=== PATIENT | female | born 1945 | race Caucasian/White ===

== ENCOUNTER → 2016-06-30 | Outpatient (CLI) | payer BC ==
--- NOTE | 2016-06-30 07:55 | MAMMOGRAPHY REPORT ---
BILATERAL DIGITAL SCREENING MAMMOGRAM WITH CAD: 06/30/2016 CLINICAL HISTORY: Routine screening. Patient has no complaints. TECHNIQUE: Current study was also evaluated with a Computer Aided Detection (CAD) system. Bilatera l CC and MLO views were obtained. COMPARISON: Comparison is made to exams dated: 06/23/2014 mammogram, 06/19/2013 mammogram, 05/16/2012 mammogram, 05/12/2011 mammogram, 05/11/2010 mammogram, and 05/07/2009 mammogram - [facility]. BREAST COMPOSITION: There are scattered areas of fibroglandular density in both breasts. FINDINGS: No suspicious masses, calcifications, or areas of architectural distortion are noted in e ither breast. There has been no significant interval change compared to prior exams. Scattered bilat eral benign-appearing calcifications are not significantly changed. IMPRESSION: ACR BI-RADS CATEGORY 2: BENIGN There is no mammographic evidence of malignancy. A 1 year screening mammogram is recommended. The p atient will receive written notification of the results. Approximately 10% of breast cancers are not detected with mammography. A negative mammographic repor t should not delay biopsy if a clinically suggestive mass is present. Talia Velásquez M.D. /:06/30/2016 07:47:16 Administrative Aide: Marjan Sam, [facility] letter sent: Normal 1/2 BI-RADS Code: ACR BI-RADS Category 2: Benign
== END | disposition home or self-care (01) ==
LOC: C.MAMM 07:17
PROVIDERS: ATTEND Family Medicine
DX: Z12.31 Encounter for screening mammogram for malignant neoplasm of breast (principal)

== ENCOUNTER → 2017-07-04 | Outpatient (CLI) | payer BC ==
--- NOTE | 2017-07-04 12:51 | MAMMOGRAPHY REPORT ---
BILATERAL DIGITAL SCREENING MAMMOGRAM TOMOSYNTHESIS WITH CAD: 07/04/2017 CLINICAL HISTORY: Routine screening. Patient has no complaints. TECHNIQUE: Breast tomosynthesis in addition to standard 2D mammography was performed. Current study was also evaluated with a Computer Aided Detection (CAD) system. COMPARISON: Comparison is made to exams dated: 06/30/2016 mammogram, 06/25/2015 mammogram, 06/23/2014 ma mmogram, 06/19/2013 mammogram, 05/16/2012 mammogram, and 05/12/2011 mammogram - [facility]. BREAST COMPOSITION: There are scattered areas of fibroglandular density in both breasts. FINDINGS: There are stable grouped punctate micro calcifications in the right breast and a few other scattered punctate micro calcifications bilaterally. A benign coarse calcification in the upper oute r right breast. Stable benign circumscribed mass in the upper outer quadrant of the left breast. No new suspicious mass, architectural distortion or cluster of microcalcifications is seen. IMPRESSION: ACR BI-RADS CATEGORY 1: NEGATIVE There is no mammographic evidence of malignancy. A 1 year screening mammogram is recommended. The pa tient will receive written notification of the results. Approximately 10% of breast cancers are not detected with mammography. A negative mammographic report should not delay biopsy if a clinically suggestive mass is present. Jenni Piper M.D. ay/:07/04/2017 08:29:04 Ultrasound Coordinator: Marjan Sam, [facility] letter sent: Normal 1/2 BI-RADS Code: ACR BI-RADS Category 1: Negative
== END | disposition home or self-care (01) ==
LOC: C.MAMM 07:14
PROVIDERS: ATTEND Family Medicine
DX: Z12.31 Encounter for screening mammogram for malignant neoplasm of breast (principal)

== ENCOUNTER 2018-05-28 19:22 | Inpatient (IN) ==
[2018-05-28] MEDS ORDERED: ONDANSETRON INJ 2 MG/ML 2 ML VIAL IV STA (19:41)
[2018-05-28] MEDS ORDERED: MoRPHine SULFATE 4 MG/ML 1 ML CARP\\VIAL IV STA (19:41)
--- NOTE | 2018-05-28 20:06 | Emergency Department Note ---
Entered by Jackie Matamoros acting as a scribe for Silvio Brizuela DO History of Present Illness General Chief complaint: Shortness of Breath/Dyspnea Stated complaint: CAN'T BREATH,PAIN IN BACK Time Seen by Provider: 05/28/18 19:31 Source: patient and family Mode of arrival: ambulatory Limitations: no limitations History of Present Illness Provider complaint: SOB Onset (ago): day(s) 4 Location: chest Severity: moderate Pain Consistency: + constant Maximum Pain Intensity: 6 Exacerbated By: + movement Associated symptoms: + other (lower back pain, lower abd pain, fever); no nausea/vomiting Patient is a 72 year old female presenting to the ED with Sob beginning x4 days ago. Patient states that she was recently diagnosed with Strep Throat upon onset, and has been having worsening SOB since. SOB is moderate in severity and worsens with exertion, walking and laying down. She notes that she did have fever of 102 upon onset. She includes she is having associated pain in the lower abd and lower back, which is mild in severity and constant since onset. Patient shares that she did start Penicillin today and has had x2 doses. Patient denies any edema in the legs, nausea, vomiting, chills, numbness, or any other complaints or concerns at this time. She notes hx of high cholesterol, melanoma and thyroid problems. She denies hx of DVT. Home Medications Home Medications Medication Instructions Recorded Confirmed Type aspirin [Aspir-81] 1 tab PO DAILY 05/28/18 05/28/18 History atorvastatin 20 mg PO PM 05/28/18 05/28/18 History calcium carbonate-vitamin D3 1 cap PO DAILY 05/28/18 05/28/18 History [Calcium 600 + D(3)] cholecalciferol (vitamin D3) 1,000 unit PO DAILY 05/28/18 05/28/18 History [Vitamin D3] citalopram [Celexa] 20 mg PO DAILY 05/28/18 05/28/18 History [id number]-ast 1 cap PO DAILY 05/28/18 05/28/18 History [krill oil] levothyroxine [Synthroid] 125 mcg PO DAILY 05/28/18 05/28/18 History penicillin V potassium 500 mg PO TID 05/28/18 05/28/18 History trazodone 1 tab PO HS 05/28/18 05/28/18 History Allergies Allergy/AdvReac Type Severity Reaction Status Date / Time No Known Allergies Allergy Verified 05/28/18 20:47 Past Med/Surg History Medical History History of hysterectomy (Chronic) Graves disease (Chronic) Depression (Chronic) Prediabetes (Chronic) High cholesterol (Chronic) Melanoma (Resolved) Family history non-contributory Surgical History History of cholecystectomy (Chronic) History of appendectomy (Chronic) Family History Other CAD (coronary artery disease) Social History Preferred Language: Frisian Communication Ability: Effective Event Sales Manager Required: No Beliefs That Will Affect Care: Episcopal Current Living Situation: Spouse Other Information That Helps Us Care for You: No Feels Safe at Home: Yes Safety Concerns: Feels Safe At This Time Smoking Status: Never smoker Hx Alcohol Use: No Hx Substance Use: No Review of Systems See HPI for pertinent positives & negatives. and A total of 10 systems reviewed and were otherwise negative Physical Exam Vital Signs Vital Signs - 24 hr 05/28/18 19:25 05/28/18 19:56 05/28/18 20:10 Temperature 36.7 C Temperature Source Oral Sepsis Recent Fever Within 48 Hours No Sepsis New/Unexplained Change in Mental Status No Sepsis Action Taken by Nursing No Action Required Pulse Rate 147 H 128 H Pulse Rate [Bilateral Apical] 128 H Pulse Rate [Left Finger] Pulse Rhythm Regular Pulse Rhythm [Left Finger] Pulse Strength [Left Finger] Respiratory Rate 24 22 Respiratory Effort / Characteristics Non-Labored Labored Non-Labored Spontaneous Respiratory Depth Normal Deep Respiratory Pattern Regular Blood Pressure 150/102 H Blood Pressure [Left Arm] Blood Pressure [Left Radial Artery] 141/90 H Blood Pressure [Right Arm] Blood Pressure Mean 118 Blood Pressure Mean [Left Arm] Blood Pressure Mean [Left Radial Artery] 107 Blood Pressure Mean [Right Arm] Blood Pressure Position [Left Arm] Blood Pressure Position [Right Arm] Pulse Oximetry 91 92 93 Oxygen Delivery Method Room Air Room Air Nasal Cannula Oxygen Flow Rate 2 05/28/18 20:11 05/28/18 21:22 05/28/18 22:40 Temperature Temperature Source Sepsis Recent Fever Within 48 Hours Sepsis New/Unexplained Change in Mental Status Sepsis Action Taken by Nursing Pulse Rate 95 H Pulse Rate [Bilateral Apical] 137 H 99 H Pulse Rate [Left Finger] Pulse Rhythm Pulse Rhythm [Left Finger] Pulse Strength [Left Finger] Respiratory Rate 22 18 20 Respiratory Effort / Characteristics Respiratory Depth Respiratory Pattern Blood Pressure 145/84 H Blood Pressure [Left Arm] Blood Pressure [Left Radial Artery] 141/98 H 143/81 H Blood Pressure [Right Arm] Blood Pressure Mean Blood Pressure Mean [Left Arm] Blood Pressure Mean [Left Radial Artery] 112 101 Blood Pressure Mean [Right Arm] Blood Pressure Position [Left Arm] Blood Pressure Position [Right Arm] Pulse Oximetry 93 94 95 Oxygen Delivery Method Nasal Cannula Nasal Cannula Nasal Cannula Oxygen Flow Rate 2 2 2 05/28/18 23:42 05/29/18 01:19 05/29/18 02:56 Temperature 36.8 C 36.3 C L Temperature Source Oral Oral Sepsis Recent Fever Within 48 Hours Sepsis New/Unexplained Change in Mental Status Sepsis Action Taken by Nursing Pulse Rate Pulse Rate [Bilateral Apical] 142 H 124 H 78 Pulse Rate [Left Finger] Pulse Rhythm Pulse Rhythm [Left Finger] Pulse Strength [Left Finger] Respiratory Rate 20 18 Respiratory Effort / Characteristics Non-Labored Spontaneous SOB on Exertion Respiratory Depth Normal Respiratory Pattern Regular Blood Pressure Blood Pressure [Left Arm] 137/82 121/76 Blood Pressure [Left Radial Artery] Blood Pressure [Right Arm] 157/93 H Blood Pressure Mean Blood Pressure Mean [Left Arm] 100 91 Blood Pressure Mean [Left Radial Artery] Blood Pressure Mean [Right Arm] 114 Blood Pressure Position [Left Arm] Lying Blood Pressure Position [Right Arm] Sitting Pulse Oximetry 92 93 Oxygen Delivery Method Nasal Cannula Oxygen Flow Rate 2 2 05/29/18 07:34 05/29/18 09:33 05/29/18 11:09 Temperature 36.5 C 37.2 C Temperature Source Oral Oral Sepsis Recent Fever Within 48 Hours Sepsis New/Unexplained Change in Mental Status Sepsis Action Taken by Nursing Pulse Rate Pulse Rate [Bilateral Apical] 70 Pulse Rate [Left Finger] 70 65 Pulse Rhythm Pulse Rhythm [Left Finger] Regular Pulse Strength [Left Finger] Normal Respiratory Rate 18 18 Respiratory Effort / Characteristics Respiratory Depth Respiratory Pattern Blood Pressure Blood Pressure [Left Arm] 122/81 102/69 Blood Pressure [Left Radial Artery] Blood Pressure [Right Arm] 143/85 H Blood Pressure Mean Blood Pressure Mean [Left Arm] 94 80 Blood Pressure Mean [Left Radial Artery] Blood Pressure Mean [Right Arm] 104 Blood Pressure Position [Left Arm] Lying Blood Pressure Position [Right Arm] Pulse Oximetry 94 91 Oxygen Delivery Method Oxygen Flow Rate 2 2 05/29/18 11:40 05/29/18 15:31 05/29/18 16:00 Temperature 36.7 C Temperature Source Oral Sepsis Recent Fever Within 48 Hours Sepsis New/Unexplained Change in Mental Status Sepsis Action Taken by Nursing Pulse Rate Pulse Rate [Bilateral Apical] Pulse Rate [Left Finger] 63 Pulse Rhythm Pulse Rhythm [Left Finger] Regular Pulse Strength [Left Finger] Normal Respiratory Rate 18 Respiratory Effort / Characteristics SOB on Exertion Non-Labored Non-Labored Spontaneous Respiratory Depth Normal Normal Normal Respiratory Pattern Regular Regular Blood Pressure Blood Pressure [Left Arm] Blood Pressure [Left Radial Artery] Blood Pressure [Right Arm] 138/81 Blood Pressure Mean Blood Pressure Mean [Left Arm] Blood Pressure Mean [Left Radial Artery] Blood Pressure Mean [Right Arm] 100 Blood Pressure Position [Left Arm] Blood Pressure Position [Right Arm] Lying Pulse Oximetry 90 Oxygen Delivery Method Nasal Cannula Room Air Nasal Cannula Oxygen Flow Rate 2 2 GENERAL: Patient is awake alert in no acute distress patient is resting comfortably and showing no signs of anxiety EYES: The conjunctivae are clear. The pupils are round and reactive. EARS, NOSE, MOUTH AND THROAT: The nose is without any evidence of any deformity. Mucous membranes are moist tongue is midline NECK: The neck is nontender and supple. RESPIRATORY: Shallow respirations were noted. There are diminished breath sounds noted throughout. Scattered rales were noted in all lung mcgarry. There was significant conversational dyspnea appreciated. CARDIOVASCULAR: Tachycardic rate with irregular rhythm was noted. There was no definite murmur noted to auscultation. GASTROINTESTINAL: The abdomen is soft. Bowel sounds are present in all quadrants. Abdomen is nontender MUSCULOSKELETAL/EXTREMITIES: There is no evidence of gross deformity full range of motion is noted in the hips and shoulders SKIN: There is no obvious evidence of any rash. There are no petechiae, pallor or cyanosis noted. NEUROLOGIC: Patient is awake alert and oriented x3. Course 1936: Past medical records reviewed. The patient was evaluated in room A10, and a complete history and physical examination were performed. 2055: Updated patient on results and plan for admission 2104: Discussed patient case with Yanelis Martinez PA-C, who accepts patient for admission. Administered Medications Colchicine (Colcrys) 0.6 mg PO BID [facility] Stop: 06/28/18 08:59 Last Admin: 05/29/18 09:31 Dose: 0.6 mg Documented by: [id number] Doxycycline Hyclate (Vibramycin) 100 mg PO BID [facility] Stop: 06/05/18 08:59 Last Admin: 05/29/18 09:31 Dose: 100 mg Documented by: [id number] Ceftriaxone Sodium 1,000 mg/ (Dextrose) 50 mls @ 100 mls/hr IV DAILY@0100 [facility] Stop: 06/05/18 00:59 Last Infusion: 05/29/18 01:03 Dose: 0 mls/hr Documented by: [id number] Admin: 05/29/18 00:31 Dose: 100 mls/hr Documented by: [id number] Methylprednisolone 20 mg/ (Syringe) 0.32 mls @ 1.5 mls/min IV Q8H [facility] Stop: 06/28/18 00:00 Last Admin: 05/29/18 09:26 Dose: 1.5 mls/min Documented by: [id number] Admin: 05/29/18 00:31 Dose: 1.5 mls/min Documented by: [id number] Heparin Sodium/Dextrose (Heparin Sodium/Dextrose) 25,000 units in 500 mls @ 20 mls/hr IV .Q24H [facility]; Protocol Stop: 06/28/18 01:14 Last Titration: 05/29/18 15:09 Dose: 1,000 units/hr, 20 mls/hr Documented by: [id number] Cosigned by: [id number] Titration: 05/29/18 08:50 Dose: 1,000 units/hr, 20 mls/hr Documented by: [id number] Cosigned by: [id number] Titration: 05/29/18 07:23 Dose: 850 units/hr, 17 mls/hr Documented by: [id number] Cosigned by: [id number] Admin: 05/29/18 01:22 Dose: 850 units/hr, 17 mls/hr Documented by: [id number] Cosigned by: [id number] Insulin Aspart (Novolog Flexpen) 0 units SC ACHS [facility] Stop: 06/28/18 07:29 Last Admin: 05/29/18 12:02 Dose: 4 units Documented by: [id number] Cosigned by: [id number] Admin: 05/29/18 09:30 Dose: 7 units Documented by: [id number] Cosigned by: [id number] Insulin Glargine (Lantus Solostar Pen) 0 - 15 units SC Q12 [facility]; Protocol Stop: 06/28/18 00:00 Last Admin: 05/29/18 09:29 Dose: 15 units Documented by: [id number] Cosigned by: [id number] Admin: 05/29/18 00:32 Dose: 7 units Documented by: [id number] Cosigned by: [id number] Ioversol (Optiray 320 125ml) 125 ml IV ONCE PRN PRN Reason: Interaction Checking Stop: 06/01/18 23:30 Last Admin: 05/28/18 23:31 Dose: 91 ml Documented by: [id number] Metoprolol Tartrate (Lopressor) 25 mg PO BID [facility] Stop: 06/28/18 00:00 Last Admin: 05/29/18 09:27 Dose: 25 mg Documented by: [id number] Admin: 05/29/18 00:32 Dose: 25 mg Documented by: [id number] Discontinued Medications Diltiazem HCl (Cardizem) 10 mg IV NOW STA Stop: 05/28/18 21:06 Last Admin: 05/28/18 21:13 Dose: 10 mg Documented by: [id number] Cosigned by: [id number] Piperacillin Sod/Tazobactam Sod (Zosyn) 4.5 gm in 120 mls @ 240 mls/hr IV NOW ONE Stop: 05/28/18 20:59 Last Infusion: 05/29/18 00:11 Dose: 0 mls/hr Documented by: [id number] Admin: 05/28/18 20:40 Dose: 240 mls/hr Documented by: [id number] Sodium Chloride (Nss 1000ml) 500 mls @ 999 mls/hr IV .Q31M ONE Stop: 05/28/18 21:00 Last Infusion: 05/29/18 00:11 Dose: 0 mls/hr Documented by: [id number] Admin: 05/28/18 20:40 Dose: 999 mls/hr Documented by: [id number] Sodium Chloride (Nss 1000ml) 1,000 mls @ 999 mls/hr IV .Q1H1M ONE Stop: 05/28/18 22:05 Last Infusion: 05/29/18 00:11 Dose: 0 mls/hr Documented by: [id number] Admin: 05/28/18 21:15 Dose: 999 mls/hr Documented by: [id number] Sodium Chloride (Nss 1000ml) 1,000 mls @ 80 mls/hr IV .[id number] [facility] Stop: 05/29/18 10:59 Last Infusion: 05/29/18 13:01 Dose: 0 mls/hr Documented by: [id number] Admin: 05/29/18 00:10 Dose: 80 mls/hr Documented by: [id number] Magnesium Sulfate/Dextrose (Magnesium Sulfate / D5w) 1 gm in 100 mls @ 100 mls/hr IV NOW ONE Stop: 05/29/18 01:59 Last Infusion: 05/29/18 02:25 Dose: 0 mls/hr Documented by: [id number] Admin: 05/29/18 01:23 Dose: 100 mls/hr Documented by: [id number] Heparin Sodium (Porcine) 4,000 (units/ Syringe) 4 mls @ 10 mls/min IV NOW ONE Stop: 05/29/18 01:16 Last Admin: 05/29/18 01:23 Dose: 10 mls/min Documented by: [id number] Cosigned by: [id number] Potassium Chloride (K [place] / Wtr) 10 meq in 100 mls @ 100 mls/hr IV Q1H [facility] Stop: 05/29/18 03:44 Last Infusion: 05/29/18 04:10 Dose: 0 mls/hr Documented by: [id number] Admin: 05/29/18 02:53 Dose: 100 mls/hr Documented by: [id number] Infusion: 05/29/18 02:53 Dose: 100 mls/hr Documented by: [id number] Admin: 05/29/18 01:56 Dose: 100 mls/hr Documented by: [id number] Heparin Sodium (Porcine) 4,500 (units/ Syringe) 4.5 mls @ 1 mls/min IV ONE ONE Stop: 05/29/18 09:19 Last Admin: 05/29/18 09:26 Dose: 1 mls/min Documented by: [id number] Cosigned by: [id number] Metoprolol Tartrate (Lopressor) 5 mg IV NOW ONE Stop: 05/29/18 01:01 Last Admin: 05/29/18 01:22 Dose: 5 mg Documented by: [id number] Morphine Sulfate (Morphine Sulfate) 4 mg IV NOW STA Stop: 05/28/18 19:42 Last Admin: 05/28/18 20:06 Dose: 4 mg Documented by: [id number] Ondansetron HCl (Zofran) 4 mg IV NOW STA Stop: 05/28/18 19:42 Last Admin: 05/28/18 20:06 Dose: 4 mg Documented by: [id number] Perflutren Lipid Microsphere (Definity) 2 ml IV ONCE ONE Stop: 05/29/18 10:10 Last Admin: 05/29/18 10:09 Dose: 2 ml Documented by: [id number] Potassium Chloride (Klor-Con M20) 40 meq PO NOW ONE Stop: 05/29/18 00:01 Last Admin: 05/29/18 00:32 Dose: 40 meq Documented by: [id number] Medical Decision Making Differential Diagnosis Differential diagnosis: Etiologies such as infections, reactive airway disease, pneumonia, pneumothorax, COPD, CHF, cardiac ischemia, pulmonary embolism, musculoskeletal, gastrointestinal, as well as others were entertained. Medical Records Attestation: I reviewed the patient's medical records. Home Medications Current Medication List: was personally reviewed by me Laboratory Data Attestation: I reviewed the patient's lab results. Result diagrams: 05/29/18 07:59 05/29/18 07:59 Lab Results 05/28/18 05/28/18 05/28/18 Range/Units 19:58 19:58 20:00 WBC 24.67 H (4.8-10.8) K/uL RBC 4.41 (4.2-5.4) M/uL Hgb 13.4 (12.0-16.0) g/dL Hct 37.8 (37-47) % MCV 85.7 (80-100) fL MCH 30.4 (25-34) pg MCHC 35.4 (32-36) g/dL RDW Std Deviation 41.6 (36.4-46.3) fL RDW Coeff of Marely 13.2 (11.5-14.5) % Plt Count 342 (130-400) K/uL MPV 9.9 (7.4-10.4) fL Immature Gran % (Auto) 1.2 % Neut % (Auto) 87.4 % Lymph % (Auto) 5.3 % Ceiba % (Auto) 6.0 % Eos % (Auto) 0.0 % Baso % (Auto) 0.1 % Immature Gran # (Auto) 0.29 H (0.00-0.02) K/uL Neut # (Auto) 21.57 H (1.4-6.5) K/uL Lymph # (Auto) 1.30 (1.2-3.4) K/uL Ceiba # (Auto) 1.48 H (0.11-0.59) K/uL Eos # (Auto) 0.00 (0-0.5) K/uL Baso # (Auto) 0.03 (0-0.2) K/uL ESR (0-21) mm/hr PT (9.0-12.0) Seconds INR (0.9-1.1) APTT (21.0-31.0) Seconds PTT Ratio VBG pH 7.47 H (7.36-7.41) VBG pCO2 34 L (38-50) mmHg VBG pO2 31 mmHg VBG HCO3 24 mmol/L VBG O2 Saturation 64.1 % VBG Base Excess 0.8 mEq/L Barometric Pressure 731.6 mm/Hg Sodium (136-145) mmol/L Potassium (3.5-5.1) mmol/L Chloride (98-107) mmol/L Carbon Dioxide (21-32) mmol/L Anion Gap (3-11) BUN (7-18) mg/dl Creatinine (0.6-1.2) mg/dl Est Cr Clr Drug Dosing Est GFR ( Amer) Est GFR (Non-Af Amer) BUN/Creatinine Ratio (10-20) Glucose (70-99) mg/dl POC Glucose (70-99) Estimat Average Glucose mg/dl Hemoglobin A1c (4.5-5.6) % Lactate 2.7 H* (0.4-2.0) mmol/L Calcium (8.5-10.1) mg/dl Magnesium (1.8-2.4) mg/dl Total Bilirubin (0.2-1) mg/dl AST (15-37) U/L ALT (12-78) U/L Alkaline Phosphatase (45-117) U/L Troponin I (0-0.045) ng/ml C-Reactive Protein (0-0.29) mg/dl NT-Pro-B Natriuret Pep (0-900) pg/ml Total Protein (6.4-8.2) gm/dl Albumin (3.4-5.0) gm/dl Globulin (2.5-4.0) gm/dl Albumin/Globulin Ratio (0.9-2) Triglycerides (0-150) mg/dl Cholesterol (0-200) mg/dl LDL Cholesterol, Calc mg/dl VLDL Cholesterol, Calc mg/dl HDL Cholesterol mg/dl Cholesterol/HDL Ratio Procalcitonin (0-0.5) ng/ml TSH (0.300-4.500) uIu/ml Influenza Type A (PCR) (Neg) Influenza Type B (PCR) (Neg) 05/28/18 05/28/18 05/28/18 Range/Units 20:00 20:00 20:00 WBC (4.8-10.8) K/uL RBC (4.2-5.4) M/uL Hgb (12.0-16.0) g/dL Hct (37-47) % MCV (80-100) fL MCH (25-34) pg MCHC (32-36) g/dL RDW Std Deviation (36.4-46.3) fL RDW Coeff of Mraely (11.5-14.5) % Plt Count (130-400) K/uL MPV (7.4-10.4) fL Immature Gran % (Auto) % Neut % (Auto) % Lymph % (Auto) % Ceiba % (Auto) % Eos % (Auto) % Baso % (Auto) % Immature Gran # (Auto) (0.00-0.02) K/uL Neut # (Auto) (1.4-6.5) K/uL Lymph # (Auto) (1.2-3.4) K/uL Ceiba # (Auto) (0.11-0.59) K/uL Eos # (Auto) (0-0.5) K/uL Baso # (Auto) (0-0.2) K/uL ESR (0-21) mm/hr PT 11.6 (9.0-12.0) Seconds INR 1.1 (0.9-1.1) APTT 28.7 (21.0-31.0) Seconds PTT Ratio 1.1 VBG pH (7.36-7.41) VBG pCO2 (38-50) mmHg VBG pO2 mmHg VBG HCO3 mmol/L VBG O2 Saturation % VBG Base Excess mEq/L Barometric Pressure mm/Hg Sodium 130 L (136-145) mmol/L Potassium 3.2 L (3.5-5.1) mmol/L Chloride 94 L (98-107) mmol/L Carbon Dioxide 22 (21-32) mmol/L Anion Gap 14.0 H (3-11) BUN 20 H (7-18) mg/dl Creatinine 1.16 (0.6-1.2) mg/dl Est Cr Clr Drug Dosing Not Reportable Est GFR ( Amer) 54.1 Est GFR (Non-Af Amer) 46.7 BUN/Creatinine Ratio 17.0 (10-20) Glucose 191 H (70-99) mg/dl POC Glucose (70-99) Estimat Average Glucose mg/dl Hemoglobin A1c (4.5-5.6) % Lactate (0.4-2.0) mmol/L Calcium 9.1 (8.5-10.1) mg/dl Magnesium 1.9 (1.8-2.4) mg/dl Total Bilirubin 0.7 (0.2-1) mg/dl AST 51 H (15-37) U/L ALT 65 (12-78) U/L Alkaline Phosphatase 157 H (45-117) U/L Troponin I 0.293 H* (0-0.045) ng/ml C-Reactive Protein 43.00 H (0-0.29) mg/dl NT-Pro-B Natriuret Pep 1270 H (0-900) pg/ml Total Protein 8.5 H (6.4-8.2) gm/dl Albumin 2.2 L (3.4-5.0) gm/dl Globulin 6.3 H (2.5-4.0) gm/dl Albumin/Globulin Ratio 0.3 L (0.9-2) Triglycerides (0-150) mg/dl Cholesterol (0-200) mg/dl LDL Cholesterol, Calc mg/dl VLDL Cholesterol, Calc mg/dl HDL Cholesterol mg/dl Cholesterol/HDL Ratio Procalcitonin 2.07 H (0-0.5) ng/ml TSH 3.580 (0.300-4.500) uIu/ml Influenza Type A (PCR) (Neg) Influenza Type B (PCR) (Neg) 05/28/18 05/28/18 05/28/18 Range/Units 20:00 22:10 23:55 WBC (4.8-10.8) K/uL RBC (4.2-5.4) M/uL Hgb (12.0-16.0) g/dL Hct (37-47) % MCV (80-100) fL MCH (25-34) pg MCHC (32-36) g/dL RDW Std Deviation (36.4-46.3) fL RDW Coeff of Marely (11.5-14.5) % Plt Count (130-400) K/uL MPV (7.4-10.4) fL Immature Gran % (Auto) % Neut % (Auto) % Lymph % (Auto) % Ceiba % (Auto) % Eos % (Auto) % Baso % (Auto) % Immature Gran # (Auto) (0.00-0.02) K/uL Neut # (Auto) (1.4-6.5) K/uL Lymph # (Auto) (1.2-3.4) K/uL Ceiba # (Auto) (0.11-0.59) K/uL Eos # (Auto) (0-0.5) K/uL Baso # (Auto) (0-0.2) K/uL ESR > 90 H (0-21) mm/hr PT (9.0-12.0) Seconds INR (0.9-1.1) APTT (21.0-31.0) Seconds PTT Ratio VBG pH (7.36-7.41) VBG pCO2 (38-50) mmHg VBG pO2 mmHg VBG HCO3 mmol/L VBG O2 Saturation % VBG Base Excess mEq/L Barometric Pressure mm/Hg Sodium (136-145) mmol/L Potassium (3.5-5.1) mmol/L Chloride (98-107) mmol/L Carbon Dioxide (21-32) mmol/L Anion Gap (3-11) BUN (7-18) mg/dl Creatinine (0.6-1.2) mg/dl Est Cr Clr Drug Dosing Est GFR ( Amer) Est GFR (Non-Af Amer) BUN/Creatinine Ratio (10-20) Glucose (70-99) mg/dl POC Glucose (70-99) Estimat Average Glucose mg/dl Hemoglobin A1c (4.5-5.6) % Lactate (0.4-2.0) mmol/L Calcium (8.5-10.1) mg/dl Magnesium (1.8-2.4) mg/dl Total Bilirubin (0.2-1) mg/dl AST (15-37) U/L ALT (12-78) U/L Alkaline Phosphatase (45-117) U/L Troponin I 0.235 H* (0-0.045) ng/ml C-Reactive Protein (0-0.29) mg/dl NT-Pro-B Natriuret Pep (0-900) pg/ml Total Protein (6.4-8.2) gm/dl Albumin (3.4-5.0) gm/dl Globulin (2.5-4.0) gm/dl Albumin/Globulin Ratio (0.9-2) Triglycerides (0-150) mg/dl Cholesterol (0-200) mg/dl LDL Cholesterol, Calc mg/dl VLDL Cholesterol, Calc mg/dl HDL Cholesterol mg/dl Cholesterol/HDL Ratio Procalcitonin (0-0.5) ng/ml TSH (0.300-4.500) uIu/ml Influenza Type A (PCR) Neg for Influ A (Neg) Influenza Type B (PCR) Neg for Influ B (Neg) 05/29/18 05/29/18 05/29/18 Range/Units 00:28 00:30 07:21 WBC (4.8-10.8) K/uL RBC (4.2-5.4) M/uL Hgb (12.0-16.0) g/dL Hct (37-47) % MCV (80-100) fL MCH (25-34) pg MCHC (32-36) g/dL RDW Std Deviation (36.4-46.3) fL RDW Coeff of Marely (11.5-14.5) % Plt Count (130-400) K/uL MPV (7.4-10.4) fL Immature Gran % (Auto) % Neut % (Auto) % Lymph % (Auto) % [place] % (Auto) % Eos % (Auto) % Baso % (Auto) % Immature Gran # (Auto) (0.00-0.02) K/uL Neut # (Auto) (1.4-6.5) K/uL Lymph # (Auto) (1.2-3.4) K/uL Ceiba # (Auto) (0.11-0.59) K/uL Eos # (Auto) (0-0.5) K/uL Baso # (Auto) (0-0.2) K/uL ESR (0-21) mm/hr PT (9.0-12.0) Seconds INR (0.9-1.1) APTT (21.0-31.0) Seconds PTT Ratio VBG pH (7.36-7.41) VBG pCO2 (38-50) mmHg VBG pO2 mmHg VBG HCO3 mmol/L VBG O2 Saturation % VBG Base Excess mEq/L Barometric Pressure mm/Hg Sodium (136-145) mmol/L Potassium (3.5-5.1) mmol/L Chloride (98-107) mmol/L Carbon Dioxide (21-32) mmol/L Anion Gap (3-11) BUN (7-18) mg/dl Creatinine (0.6-1.2) mg/dl Est Cr Clr Drug Dosing Est GFR ( Amer) Est GFR (Non-Af Amer) BUN/Creatinine Ratio (10-20) Glucose (70-99) mg/dl POC Glucose 145 H 186 H (70-99) Estimat Average Glucose mg/dl Hemoglobin A1c (4.5-5.6) % Lactate 1.4 (0.4-2.0) mmol/L Calcium (8.5-10.1) mg/dl Magnesium (1.8-2.4) mg/dl Total Bilirubin (0.2-1) mg/dl AST (15-37) U/L ALT (12-78) U/L Alkaline Phosphatase (45-117) U/L Troponin I (0-0.045) ng/ml C-Reactive Protein (0-0.29) mg/dl NT-Pro-B Natriuret Pep (0-900) pg/ml Total Protein (6.4-8.2) gm/dl Albumin (3.4-5.0) gm/dl Globulin (2.5-4.0) gm/dl Albumin/Globulin Ratio (0.9-2) Triglycerides (0-150) mg/dl Cholesterol (0-200) mg/dl LDL Cholesterol, Calc mg/dl VLDL Cholesterol, Calc mg/dl HDL Cholesterol mg/dl Cholesterol/HDL Ratio Procalcitonin (0-0.5) ng/ml TSH (0.300-4.500) uIu/ml Influenza Type A (PCR) (Neg) Influenza Type B (PCR) (Neg) 05/29/18 05/29/18 05/29/18 Range/Units 07:59 07:59 07:59 WBC 14.91 H (4.8-10.8) K/uL RBC 3.79 L (4.2-5.4) M/uL Hgb 11.2 L (12.0-16.0) g/dL Hct 32.9 L (37-47) % MCV 86.8 (80-100) fL MCH 29.6 (25-34) pg MCHC 34.0 (32-36) g/dL RDW Std Deviation 43.4 (36.4-46.3) fL RDW Coeff of Marely 13.6 (11.5-14.5) % Plt Count 274 (130-400) K/uL MPV 9.7 (7.4-10.4) fL Immature Gran % (Auto) 1.6 % Neut % (Auto) 83.8 % Lymph % (Auto) 8.1 % [place] % (Auto) 6.4 % Eos % (Auto) 0.0 % Baso % (Auto) 0.1 % Immature Gran # (Auto) 0.24 H (0.00-0.02) K/uL Neut # (Auto) 12.49 H (1.4-6.5) K/uL Lymph # (Auto) 1.21 (1.2-3.4) K/uL [place] # (Auto) 0.96 H (0.11-0.59) K/uL Eos # (Auto) 0.00 (0-0.5) K/uL Baso # (Auto) 0.01 (0-0.2) K/uL ESR (0-21) mm/hr PT (9.0-12.0) Seconds INR (0.9-1.1) APTT (21.0-31.0) Seconds PTT Ratio VBG pH (7.36-7.41) VBG pCO2 (38-50) mmHg VBG pO2 mmHg VBG HCO3 mmol/L VBG O2 Saturation % VBG Base Excess mEq/L Barometric Pressure mm/Hg Sodium 132 L (136-145) mmol/L Potassium 4.8 D (3.5-5.1) mmol/L Chloride 101 (98-107) mmol/L Carbon Dioxide 23 (21-32) mmol/L Anion Gap 8.0 (3-11) BUN 22 H (7-18) mg/dl Creatinine 1.03 (0.6-1.2) mg/dl Est Cr Clr Drug Dosing 55.4 Est GFR ( Amer) 62.5 Est GFR (Non-Af Amer) 53.9 BUN/Creatinine Ratio 21.0 H (10-20) Glucose 182 H (70-99) mg/dl POC Glucose (70-99) Estimat Average Glucose 143 mg/dl Hemoglobin A1c 6.6 H (4.5-5.6) % Lactate (0.4-2.0) mmol/L Calcium 8.3 L (8.5-10.1) mg/dl Magnesium 2.6 H (1.8-2.4) mg/dl Total Bilirubin 0.5 (0.2-1) mg/dl AST 72 H (15-37) U/L ALT 78 (12-78) U/L Alkaline Phosphatase 146 H (45-117) U/L Troponin I 0.104 H* (0-0.045) ng/ml C-Reactive Protein (0-0.29) mg/dl NT-Pro-B Natriuret Pep (0-900) pg/ml Total Protein 7.8 (6.4-8.2) gm/dl Albumin 1.9 L (3.4-5.0) gm/dl Globulin 5.9 H (2.5-4.0) gm/dl Albumin/Globulin Ratio 0.3 L (0.9-2) Triglycerides 118 (0-150) mg/dl Cholesterol 110 (0-200) mg/dl LDL Cholesterol, Calc 69 mg/dl VLDL Cholesterol, Calc 24 mg/dl HDL Cholesterol 17 mg/dl Cholesterol/HDL Ratio 7 Procalcitonin (0-0.5) ng/ml TSH (0.300-4.500) uIu/ml Influenza Type A (PCR) (Neg) Influenza Type B (PCR) (Neg) 05/29/18 05/29/18 05/29/18 Range/Units 07:59 11:14 15:34 WBC (4.8-10.8) K/uL RBC (4.2-5.4) M/uL Hgb (12.0-16.0) g/dL Hct (37-47) % MCV (80-100) fL MCH (25-34) pg MCHC (32-36) g/dL RDW Std Deviation (36.4-46.3) fL RDW Coeff of Marely (11.5-14.5) % Plt Count (130-400) K/uL MPV (7.4-10.4) fL Immature Gran % (Auto) % Neut % (Auto) % Lymph % (Auto) % Ceiba % (Auto) % Eos % (Auto) % Baso % (Auto) % Immature Gran # (Auto) (0.00-0.02) K/uL Neut # (Auto) (1.4-6.5) K/uL Lymph # (Auto) (1.2-3.4) K/uL Ceiba # (Auto) (0.11-0.59) K/uL Eos # (Auto) (0-0.5) K/uL Baso # (Auto) (0-0.2) K/uL ESR (0-21) mm/hr PT (9.0-12.0) Seconds INR (0.9-1.1) APTT 34.6 H 40.9 H (21.0-31.0) Seconds PTT Ratio 1.3 1.5 VBG pH (7.36-7.41) VBG pCO2 (38-50) mmHg VBG pO2 mmHg VBG HCO3 mmol/L VBG O2 Saturation % VBG Base Excess mEq/L Barometric Pressure mm/Hg Sodium (136-145) mmol/L Potassium (3.5-5.1) mmol/L Chloride (98-107) mmol/L Carbon Dioxide (21-32) mmol/L Anion Gap (3-11) BUN (7-18) mg/dl Creatinine (0.6-1.2) mg/dl Est Cr Clr Drug Dosing Est GFR ( Amer) Est GFR (Non-Af Amer) BUN/Creatinine Ratio (10-20) Glucose (70-99) mg/dl POC Glucose 187 H (70-99) Estimat Average Glucose mg/dl Hemoglobin A1c (4.5-5.6) % Lactate (0.4-2.0) mmol/L Calcium (8.5-10.1) mg/dl Magnesium (1.8-2.4) mg/dl Total Bilirubin (0.2-1) mg/dl AST (15-37) U/L ALT (12-78) U/L Alkaline Phosphatase (45-117) U/L Troponin I (0-0.045) ng/ml C-Reactive Protein (0-0.29) mg/dl NT-Pro-B Natriuret Pep (0-900) pg/ml Total Protein (6.4-8.2) gm/dl Albumin (3.4-5.0) gm/dl Globulin (2.5-4.0) gm/dl Albumin/Globulin Ratio (0.9-2) Triglycerides (0-150) mg/dl Cholesterol (0-200) mg/dl LDL Cholesterol, Calc mg/dl VLDL Cholesterol, Calc mg/dl HDL Cholesterol mg/dl Cholesterol/HDL Ratio Procalcitonin (0-0.5) ng/ml TSH (0.300-4.500) uIu/ml Influenza Type A (PCR) (Neg) Influenza Type B (PCR) (Neg) 05/29/18 Range/Units 16:16 WBC (4.8-10.8) K/uL RBC (4.2-5.4) M/uL Hgb (12.0-16.0) g/dL Hct (37-47) % MCV (80-100) fL MCH (25-34) pg MCHC (32-36) g/dL RDW Std Deviation (36.4-46.3) fL RDW Coeff of Marely (11.5-14.5) % Plt Count (130-400) K/uL MPV (7.4-10.4) fL Immature Gran % (Auto) % Neut % (Auto) % Lymph % (Auto) % Ceiba % (Auto) % Eos % (Auto) % Baso % (Auto) % Immature Gran # (Auto) (0.00-0.02) K/uL Neut # (Auto) (1.4-6.5) K/uL Lymph # (Auto) (1.2-3.4) K/uL Ceiba # (Auto) (0.11-0.59) K/uL Eos # (Auto) (0-0.5) K/uL Baso # (Auto) (0-0.2) K/uL ESR (0-21) mm/hr PT (9.0-12.0) Seconds INR (0.9-1.1) APTT (21.0-31.0) Seconds PTT Ratio VBG pH (7.36-7.41) VBG pCO2 (38-50) mmHg VBG pO2 mmHg VBG HCO3 mmol/L VBG O2 Saturation % VBG Base Excess mEq/L Barometric Pressure mm/Hg Sodium (136-145) mmol/L Potassium (3.5-5.1) mmol/L Chloride (98-107) mmol/L Carbon Dioxide (21-32) mmol/L Anion Gap (3-11) BUN (7-18) mg/dl Creatinine (0.6-1.2) mg/dl Est Cr Clr Drug Dosing Est GFR ( Amer) Est GFR (Non-Af Amer) BUN/Creatinine Ratio (10-20) Glucose (70-99) mg/dl POC Glucose 155 H (70-99) Estimat Average Glucose mg/dl Hemoglobin A1c (4.5-5.6) % Lactate (0.4-2.0) mmol/L Calcium (8.5-10.1) mg/dl Magnesium (1.8-2.4) mg/dl Total Bilirubin (0.2-1) mg/dl AST (15-37) U/L ALT (12-78) U/L Alkaline Phosphatase (45-117) U/L Troponin I (0-0.045) ng/ml C-Reactive Protein (0-0.29) mg/dl NT-Pro-B Natriuret Pep (0-900) pg/ml Total Protein (6.4-8.2) gm/dl Albumin (3.4-5.0) gm/dl Globulin (2.5-4.0) gm/dl Albumin/Globulin Ratio (0.9-2) Triglycerides (0-150) mg/dl Cholesterol (0-200) mg/dl LDL Cholesterol, Calc mg/dl VLDL Cholesterol, Calc mg/dl HDL Cholesterol mg/dl Cholesterol/HDL Ratio Procalcitonin (0-0.5) ng/ml TSH (0.300-4.500) uIu/ml Influenza Type A (PCR) (Neg) Influenza Type B (PCR) (Neg) Imaging Data Radiologist's Impression: XR chest 1V portable CLINICAL HISTORY: 72 years-old Female presenting with Sepsis. TECHNIQUE: Portable upright AP view of the chest was obtained. COMPARISON: None. FINDINGS: Atherosclerosis of the aortic arch. Cardiac silhouette enlarged. Mild pulmonary vascular prominence. Left retrocardiac opacity. Minimal right basilar opacity. Left pleural effusion not excluded. No pneumothorax. Degenerative changes of the thoracic spine. Gaseous distention of bowel. IMPRESSION: 1. Left basilar infiltrate concerning for pneumonia. Associated left pleural effusion not excluded. 2. Cardiomegaly with volume overload. 3. Minimal right basilar atelectasis. Electronically signed by: Oren Larios M.D. 05/28/2018 8:12 PM ECG Data Attestation: I personally reviewed and interpreted this ECG as follows: Indication: SOB/dyspnea Rate (beats per minute): 153 Rhythm: atrial fibrillation (with Ventricular response) Findings: + other (low voltage noted throughout. inferior TW's noted. ) Comparison ECG Date: from (11/14/2003) Change: no significant change Blood Pressure Blood Pressure Findings: Elevated blood pressure Blood Pressure Disposition: further management by hospitalist [facility] Narrative The patient is a 72-year-old female who presented to the emergency department wi th her significant other for an evaluation of shortness of breath. The patient has been describing shortness of breath symptoms. She also had a recent febrile illness. She was seen by her primary care physician and started on penicillin. She is taken today's dose only. The patient denied any calf pain or leg swelling but she did have orthopnea. I discussed the patient's laboratory and radiographic studies with her. She was started on an IV antibiotic in the emergency department. She was also treated with IV fluids. She was also given IV Cardizem for rapid atrial fibrillation which does appear to be a new diagnosis for her. I discussed her case with the on-call [facility] hospitalist group. We discussed anticoagulation at this time. The patient was reevaluated multiple times. She was placed on supplemental oxygen. She was feeling much better on subsequent reevaluation. Impression & Plan Pneumonia, Hypoxia, Atrial fibrillation with rapid ventricular response, Elevated troponin Discharge Plan Visit Data *Final* Discharge Date/Time: 05/28/18 22:40 Chief Complaint: Shortness of Breath/Dyspnea Stated Complaint: CAN'T BREATH,PAIN IN BACK ED Provider: Silvio Brizuela Discharge Problem: Pneumonia, Hypoxia, Atrial fibrillation with rapid ventricular response, Elevated troponin Patient Disposition: Admitted As Inpatient Discharge Instructions Interventions: ED Discharge Assessment Last Done: 05/28/18 22:40 Discharge Problem: Pneumonia Qualifiers: Pneumonia type: due to unspecified organism Laterality: unspecified laterality Lung location: unspecified part of lung Qualified Code(s): J18.9 - Pneumonia, unspecified organism The scribe's documentation has been prepared under my direction and personally reviewed by me in its entirety. I confirm that the note above accurately reflects all work, treatment, procedures, and medical decision making performed by me.
[2018-05-28 20:12] LABS: Hematocrit (blood only) 37.8 % (37-47); Hemoglobin 13.4 g/dL (12.0-16.0); Mean Corpuscular Hgb Conc 35.4 g/dL (32-36); Mean Corpuscular Volume 85.7 fL (80-100); Mean Platelet Volume 9.9 fL (7.4-10.4); Platelet Count 342 K/uL (130-400); RDW Coefficient of Variation 13.2 % (11.5-14.5); RDW Standard Deviation 41.6 fL (36.4-46.3); Red Blood Count 4.41 M/uL (4.2-5.4); White Blood Count 24.67 K/uL (4.8-10.8)
--- NOTE | 2018-05-28 20:13 | XRay Report ---
XR chest 1V portable CLINICAL HISTORY: 72 years-old Female presenting with Sepsis. TECHNIQUE: Portable upright AP view of the chest was obtained. COMPARISON: None. FINDINGS: Atherosclerosis of the aortic arch. Cardiac silhouette enlarged. Mild pulmonary vascular prominence. Left retrocardiac opacity. Minimal right basilar opacity. Left pleural effusion not excluded. No pneu mothorax. Degenerative changes of the thoracic spine. Gaseous distention of bowel. IMPRESSION: 1. Left basilar infiltrate concerning for pneumonia. Associated left pleural effusion not excluded. 2. Cardiomegaly with volume overload. 3. Minimal right basilar atelectasis. Electronically signed by: Oren Larios M.D. 05/28/2018 8:12 PM
[2018-05-28 20:26] LABS: Base Excess VBG 0.8 mEq/L; Oxygen Saturation VBG 64.1 %; pH VBG 7.47 (7.36-7.41)
[2018-05-28] MEDS ORDERED: PIPERACILLIN/TAZOBACTAM 4.5 GM/120 ML BAG IV ONE (20:30)
[2018-05-28] MEDS ORDERED: SODIUM CHLORIDE 0.9% 1000ML 500 ML IV ONE (20:30)
[2018-05-28] MEDS ORDERED: PIPERACILL/TAZOBAC CONSULT ACTIVE PRN (20:30)
[2018-05-28 20:34] LABS: INR 1.1 (0.9-1.1); Partial Thromboplastin Ratio 1.1; Partial Thromboplastin Time 28.7 Seconds (21.0-31.0); Prothrombin Time 11.6 Seconds (9.0-12.0)
[2018-05-28 20:36] LABS: Alanine Aminotransferase 65 U/L (12-78); Albumin Level 2.2 gm/dl (3.4-5.0); Aspartate Aminotransferase 51 U/L (15-37); Blood Urea Nitrogen 20 mg/dl (7-18); Calcium 9.1 mg/dl (8.5-10.1); Carbon Dioxide 22 mmol/L (21-32); Chloride 94 mmol/L (98-107); Est GFR (African American) 54.1; Est GFR (Non-African American) 46.7; Glucose 191 mg/dl (70-99); Magnesium 1.9 mg/dl (1.8-2.4); Potassium 3.2 mmol/L (3.5-5.1); Sodium 130 mmol/L (136-145)
[2018-05-28 20:39] LABS: Basophils # (auto) 0.03 K/uL (0-0.2); Basophils % (auto) 0.1 %; Immature Granulocytes # (auto) 0.29 K/uL (0.00-0.02); Immature Granulocytes % (auto) 1.2 %; Lymphocytes % (auto) 5.3 %; Monocytes # (auto) 1.48 K/uL (0.11-0.59); Neutrophils # (auto) 21.57 K/uL (1.4-6.5); Neutrophils % (auto) 87.4 %
[2018-05-28 20:52] LABS: Albumin Globulin Ratio 0.3 (0.9-2); Alkaline Phosphatase 157 U/L (45-117); Bilirubin,Total 0.7 mg/dl (0.2-1); NT Pro B Type Natriuretic Pept 1270 pg/ml (0-900); Total Protein 8.5 gm/dl (6.4-8.2); Troponin I 0.293 ng/ml (0-0.045)
[2018-05-28 20:53] LABS: Globulin 6.3 gm/dl (2.5-4.0)
[2018-05-28] MEDS ORDERED: dilTIAZem HCl 5 MG/ML 5 ML VIAL IV STA (21:05)
[2018-05-28] MEDS ORDERED: SODIUM CHLORIDE 0.9% 1000ML 1,000 ML IV ONE (21:05)
[2018-05-28] MEDS ORDERED: SODIUM CHLORIDE 0.9% 1000ML 1,000 ML IV SCH (22:30)
--- NOTE | 2018-05-28 22:42 | History & Physical Report ---
Date of Service May 28, 2018 Assessment & Plan (1) Pneumonia: 5 days ago started with sore throat, fever 102.9F, chills, myalgias. Started with SOB, pleuritc CP over past several days. Has been alternating Tylenol and ibuprofen In ER afebrile, P: 147, R: 24, BP: 150/102 down to 141/98, 91% on RA up to 95% on 2L NC. WBC: 24. Lactate: 2.7. Procalcitonin: 2. BNP: 1270 CXR: Left basilar infiltrate concerning for pneumonia. Associated left pleural effusion not excluded. Cardiomegaly with volume overload. Minimal right basilar atelectasis. -Was given 1500ml NSS, zosyn in ER -pt does not appear fluid overloaded at this time -Community acquired pneumonia -pending blood cultures -pending influenza PCR -Rocephin, doxycycline -trend lactic acid -gentle IVF -solumedrol 20mgIV Q8H -CBC in am (2) Strep pharyngitis: Had negative rapid strep test on 05/24/18 with f/u PCR results on 05/27/18 +Group A strep. Was started on PCN 05/27/18. -Rocephin for now as has pneumonia (3) Atrial fibrillation with rapid ventricular response: In ER found to be in A-fib RVR, initial rate 147 down to 99 with cardizem 10mg IV. Pt also given 1500ml NSS. Magnesium: 1.9 -Probable onset secondary to infection -CTA chest r/o PE with pleuritic CP. Pleuritic CP may be from underlying pneumonia -pending TSH -echo -metoprolol 25mg po BID -gentle IVF -cardiology consult, appreciate recommendations (4) Elevated troponin: Troponin: 0.29 probable demand ischemia, a-fib -trend troponin -echo (5) Hypokalemia: K: 3.2 probable secondary to poor po intake -replace and monitor (6) Hyperglycemia: Hx prediabetes, diet controlled. Last A1c: 6.2 in 2009 Glucose: 190 -A1c in am -monitor BSGs, diabetic diet -Lantus, Novolog sliding scale. may need to tighten being on solumedrol (7) High cholesterol: -continue statin DVT Prophylaxis -Awaiting results of CTA chest, if negative for PE plan DVT prophylaxis lovenox Full Code as per discussion with pt Follows with Dr Padron for routine care Pt was seen with Dr Waller. See addendum (8) Graves disease: History of Present Illness Chief Complaint: SOB Primary Care Provider: Steve Andrade Nereida Pt is 72 y/o F with PMH depression, HLD, prediabetes, Grave's disease s/p ablation now on replacement therapy, h/o melanoma presented to ER with c/o SOB. Pt states 5 days ago started with fever/chills, myaligas, arthralgias and sore throat Reports throat very sore and had limited oral intake past several days. Was alternating Tylenol and Ibuprofen with limited pain relief. Reports didn't take her Rx medications for past 4 days. States is now able to swallow better and is swallowing her secretions without difficulty. Reports has been worn out and sitting around most of the day for past several days. Was seen at PCP office on 05/24/18 and had documented T: 102.9F. Initial diagnosis probable influenza and had negative rapid strep test. 05/27/18 PCR +Group A strep and pt was started on PCN. Pt states over past several days developed SOB, orthopnea, pleuritic CP. C/O aching across upper back. Denies productive cough or hemoptysis. Tilden some lightheadeness with standing. States had red rash to anterior neck on symptom onset which has since resolved. Denies other rashes. Pt denies hx known a-fib. Reports over past several years has had intermittent "fluttering in chest" that occurs with activity and lasts several seconds and resolves. Never thought to mention the palpiation symptoms to anyone in the past. Denies N/V/D/C, syncope, vision changes, neck pain, otalgia, rhinorrhea, abdominal pain, paresthesias, extremity edema, urinary symptoms, melena, hematochezia, epistaxis. Denies hx DVT/PE or known clotting disorder. Denies hx CHF. Allergies Allergy/AdvReac Type Severity Reaction Status Date / Time No Known Allergies Allergy Verified 05/28/18 20:47 Home Medications Home Medications Medication Instructions Recorded Confirmed Type aspirin [Aspir-81] 1 tab PO DAILY 05/28/18 05/28/18 History atorvastatin 20 mg PO PM 05/28/18 05/28/18 History calcium carbonate-vitamin D3 1 cap PO DAILY 05/28/18 05/28/18 History [Calcium 600 + D(3)] cholecalciferol (vitamin D3) 1,000 unit PO DAILY 05/28/18 05/28/18 History [Vitamin D3] citalopram [Celexa] 20 mg PO DAILY 05/28/18 05/28/18 History dbhgo-fx-[id number]-neo-yzh-dmagqum-ast 1 cap PO DAILY 05/28/18 05/28/18 History [krill oil] levothyroxine [Synthroid] 125 mcg PO DAILY 05/28/18 05/28/18 History penicillin V potassium 500 mg PO TID 05/28/18 05/28/18 History trazodone 1 tab PO HS 05/28/18 05/28/18 History Past Med/Surg History Medical History History of hysterectomy (Chronic) Graves disease (Chronic) Depression (Chronic) Prediabetes (Chronic) High cholesterol (Chronic) Melanoma (Resolved) Family history non-contributory Surgical History History of cholecystectomy (Chronic) History of appendectomy (Chronic) Family History Other CAD (coronary artery disease) Social History Preferred Language: Amharic Communication Ability: Effective 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 Beliefs That Will Affect Care: Pent[employer]al Current Living Situation: Spouse Other Information That Helps Us Care for You: No Feels Safe at Home: Yes Safety Concerns: Feels Safe At This Time Smoking Status: Never smoker Hx Alcohol Use: No Hx Substance Use: No Review of Systems All systems reviewed & are unremarkable except as noted in HPI & below Physical Exam Vital Signs (Past 24 Hours): Last Vital Signs Temp 36.7 C 05/28/18 19:25 Pulse 99 H 05/28/18 21:22 Resp 18 05/28/18 21:22 BP 143/81 H 05/28/18 21:22 Pulse Ox 94 05/28/18 21:22 Physical Exam: General: mild distress with pleuritic CP, WDWN Head: normocephalic, atraumatic Eyes: PERRL, EOM's intact, conjunctiva non-injected, anicteric ENT: normal inspection external ears, nose, mucous membranes dry, pharynx +erythema and petechiae, uvula midline and non-edematous Neck: supple, trachea midline, +anterior cervical lymphadenopathy Lungs: R: 20, 94% on 2L oxygen NC, difficult to fully auscultate secondary to shallow breaths, however no significant wheezing/rales noted CV: Irregularly irregular, rate 90-106, no murmur, no pretibial edema Abd: normal BS, soft, non-tender Ext: no cyanosis, no calf tenderness, no erythema or edema Neuro: A&O x 3, no focal deficits noted, normal affect Skin: warm, dry, no rashes noted Results & Data Laboratory Results Short CBC 05/28/18 Range/Units 20:00 WBC 24.67 H (4.8-10.8) K/uL Hgb 13.4 (12.0-16.0) g/dL Hct 37.8 (37-47) % Plt Count 342 (130-400) K/uL BMP 05/28/18 20:00 Sodium 130 L Potassium 3.2 L Chloride 94 L Carbon Dioxide 22 BUN 20 H Creatinine 1.16 Glucose 191 H Calcium 9.1 Cardiac Enzymes 05/28/18 Range/Units 20:00 Troponin I 0.293 H* (0-0.045) ng/ml Liver Function 05/28/18 Range/Units 20:00 Total Bilirubin 0.7 (0.2-1) mg/dl AST 51 H (15-37) U/L ALT 65 (12-78) U/L Alkaline Phosphatase 157 H (45-117) U/L Albumin 2.2 L (3.4-5.0) gm/dl Diagnostic Findings CXR: IMPRESSION: 1. Left basilar infiltrate concerning for pneumonia. Associated left pleural effusion not excluded. 2. Cardiomegaly with volume overload. 3. Minimal right basilar atelectasis. Supervising Physician Co-Signing Physician Notes HISTORY: Record reviewed. Patient interviewed and examined. Care coordinated with Celsa Amaya PA-C. Please refer to her documentation for patient's history. Briefly, 72 YO F with history of hypertension, prediabetes, Grave's disease, remote history of melanoma, and other problems. Presented to ED with fever, nonproductive cough, severe pleuritic CP and SOB. Diagnosed with strep throat in clinic; took first 2 doses of penicillin. Found to be in AF with RVR in ED. Received IV diltiazem and converted to NSR. EXAM: General- no distress Lungs- rales left base; no pleural rub appreciated Cardiovascular- RRR; no murmur, gallop, or rub appreciated; no JVD; no pretibial edema Abdomen- + bowel sounds, soft, nontender Extremities- no cyanosis; no calf tenderness; scar LLE from melanoma excision Neuro- alert, oriented Skin- warm & dry DATA: Hemoglobin 13.4, white count 24,670 (87% neutrophils with increased immature granulocytes), platelet count 342,000. Sodium 130, potassium 3.2, chloride 94, CO2 22, BUN 20, creatinine 1.16, random glucose 191. Magnesium 1.9. Serum lactate 2.7. C-reactive protein 43. Pro-calcitonin 2.07. Troponin 0.293. Pro BNP 1270. Nasopharyngeal swab for influenza A/B negative. Other lab studies as noted. Chest x-ray reviewed and demonstrated cardiomegaly and left basilar infiltrate. CTA chest (preliminary interpretation per [employer]) did not show any pulmonary emboli. Moderate pericardial effusion and multilobar densities noted, suspected atelectasis. EKG performed at 1950 reviewed and demonstrated atrial fibrillation at 150/ minute, baseline artifact, poor R wave progression, possible slight ST elevation in leads I, aVL, downsloping ST depression in leads III, aVF, T wave flattening V3 through V6. ASSESSMENT AND PLAN: Atrial fibrillation with rapid ventricular response. Received IV diltiazem in ED and converted to normal sinus rhythm. Admission labs notable for hypokalemia and borderline low serum magnesium. Received oral potassium replacement. Magnesium replacement will also be ordered. Pericarditis could be contributing factor. Started on metoprolol tartrate. [id number] score 4 (if prediabetes counted as diabetes). Potential concerns regarding anticoagulation with pericardial effusion. Literature reviewed. Appears that benefits of anticoagulation in patients with elevated [id number] score outweigh the risk. We will start IV heparin with caution using low dose protocol. Echocardiogram ordered. Consult Cardiology. Serum troponin 0 0.293. Chest pain does not seem to be ischemic in nature. Elevated troponin could be secondary to rapid atrial fibrillation and/or myocarditis. Follow troponins. Check echocardiogram. Pericardial effusion noted on CT of chest. Probable pericarditis secondary to recent infectious illness, but consider other etiologies. Start colchicine. Monitor hemodynamics closely. Maintain adequate RV filling pressure. Check echocardiogram. Consult Cardiology. Patient experiencing severe pleuritic chest pain. CTA chest negative for pulmonary embolism. Pleuritic chest pain probably secondary to infectious illness. IV methylprednisolone ordered; taper and discontinue as soon as possible. Diagnosed with strep throat in clinic. Has marked leukocytosis with left shift. Serum lactate, C-reactive protein, and pro-calcitonin elevated. Chest x-ray showed apparent left lower lobe infiltrate. CTA demonstrated multilobar densities, atelectasis suspected. Possible pneumonia with sepsis. Cultures obtained in ED. Treat for possible community acquired pneumonia with azithromycin and ceftriaxone. Follow lactate and hemodynamics. History of prediabetes. Random glucose 191. Check hemoglobin A1c. Anticipate higher blood sugars with steroid therapy. Lantus/NovoLog per protocol. Please refer to KEZIA Martinez's documentation for discussion of other issues. (1) Pneumonia Laterality: unspecified laterality Lung location: unspecified part of lung Pneumonia type: due to unspecified organism Qualified Code(s): J18.9 - Pneumonia, unspecified organism
[2018-05-28 23:29] LABS: Influenza A virus by PCR Neg for Influ A (Neg); Influenza B virus by PCR Neg for Influ B (Neg)
[2018-05-28] MEDS ORDERED: OPTIRAY 320 125ml IV PRN (23:31)
[2018-05-28] MEDS ORDERED: GLUCOSE 10 TABS/TUBE PO PRN (23:41)
[2018-05-28] MEDS ORDERED: CARBOHYDRATES FOR HYPOGLYCEMIA PO PRN (23:41)
[2018-05-28] MEDS ORDERED: DEXTROSE 50% 50 ML SYRINGE IV PRN (23:41)
[2018-05-28] MEDS ORDERED: GLUCAGON FOR INJ 1 MG VIAL SQ PRN (23:41)
[2018-05-28] MEDS ORDERED: GLUCOSE 40% GEL 15 GM TUBE PO PRN (23:41)
[2018-05-29] MEDS ORDERED: POTASSIUM CHLORIDE 20 MEQ TABCR PO ONE
[2018-05-29] MEDS: methylPREDNISolone 20 MG in SYRINGE 0 ML IV SCH ×3 (00:31→17:52)
[2018-05-29] MEDS: cefTRIAXone SODIUM 1,000 MG in DEXTROSE 5% 50 ML IV SCH (00:31)
[2018-05-29] MEDS: INSULIN GLARGINE SOLOSTAR 100 UNITS/ML 3 ML PEN SC SCH ×3 (00:32→21:10)
[2018-05-29] MEDS: METOPROLOL TARTRATE 25 MG TAB PO SCH ×3 (00:32→20:25)
[2018-05-29] MEDS ORDERED: MAGNESIUM SULFATE / D5W 1 GM/100 ML BAG IV ONE (01:00)
[2018-05-29] MEDS ORDERED: Heparin IV Low Dose WITH Bolus IV SCH (01:00)
[2018-05-29] MEDS ORDERED: METOPROLOL TARTRATE 1 MG/ML VIAL IV ONE ×2 (01:00→01:27)
[2018-05-29] MEDS ORDERED: HEPARIN IV BOLUS 4,000 UNITS in SYRINGE 0 ML IV ONE (01:15)
[2018-05-29] MEDS: HEPARIN SODIUM/DEXTROSE 25,000 UNITS/500 ML BAG IV SCH ×2 (01:22→23:32)
[2018-05-29] MEDS: POTASSIUM CHLORIDE / WTR 10 MEQ/100 ML PLCT IV SCH ×2 (01:56→02:53)
--- NOTE | 2018-05-29 06:55 | CT Scan Report ---
CT angio chest PE protocol CT DOSE: 586.63 mGy.cm HISTORY: 72 years-old Female with R/O PE. Acute breast pain, chest pain and shortness of breath TECHNIQUE: Multiple CTA images of the chest were obtained after the intravenous administration of 91 ml Optiray 320. Coronal and sagittal MIPS were obtained from the axial data set and were submitted f or review. All measurements were obtained according to NASCET criteria. A dose lowering technique wa s utilized adhering to the principles of ALARA. COMPARISON: Chest radiograph of same day. FINDINGS: CTA: Moderate multichamber cardiac enlargement. Moderate sized pericardial effusion measures up to 1.5 cm posteriorly. No associated pericardial thickening or enhancement identified. Study is limited seconda ry to respiratory motion artifact. Coronary arterial calcifications are noted. No thoracic aortic ane urysm or dissection. Patency of the imaged great vessels. Reflux of contrast into the hepatic veins a nd IVC. Pulmonary arterial tree is opacified to the level of the subsegmental branches. The segmental and subsegmental branches however are suboptimally visualized secondary to respiratory motion artifa ct. No focal filling defects identified to suggest pulmonary thromboembolic disease. CT CHEST: Normal thyroid parenchyma is not visualized. Enlarged AP window with prominent paratracheal and subca rinal lymph nodes are indeterminate. Small right and [id number] left pleural effusions. There is no pneumothorax. Mild biapical pleural-parenchymal scarring. Respiratory motion limits evaluation of the lung bases. Right basilar opacities suggest atelectasis. Left basilar consolidation is noted. Bilateral bronchial wall thickening. No significant intralobular septal thickening. Air noted throughout the esophagus. Partially imaged 3.47 m cystic structure of the left upper abdome n suggestive of a renal cyst. Soft tissues and breast parenchyma appear unremarkable. The bones appea r to be intact. Degenerative changes of the shoulders and spine. IMPRESSION: 1. Study limited secondary to respiratory motion. Within the limitations of the study there is no acu te aortic pathology or evidence of pulmonary thromboembolic disease identified. 2. Moderate cardiomegaly with moderate sized pericardial effusion. 3. Small right and [id number] left pleural effusions with left greater than right bibasilar co nsolidation suggestive of probable atelectasis. Superimposed pneumonitis difficult to exclude. 4. Mild mediastinal adenopathy, likely reactive. The above report was generated using voice recognition software. It may contain grammatical, syntax o r spelling errors. Electronically signed by: Myles Erwin M.D. 05/29/2018 6:54 AM
[2018-05-29 08:16] LABS: Basophils # (auto) 0.01 K/uL (0-0.2); Basophils % (auto) 0.1 %; Hematocrit (blood only) 32.9 % (37-47); Hemoglobin 11.2 g/dL (12.0-16.0); Immature Granulocytes # (auto) 0.24 K/uL (0.00-0.02); Immature Granulocytes % (auto) 1.6 %; Lymphocytes # (auto) 1.21 K/uL (1.2-3.4); Lymphocytes % (auto) 8.1 %; Mean Corpuscular Volume 86.8 fL (80-100); Mean Platelet Volume 9.7 fL (7.4-10.4); Monocytes # (auto) 0.96 K/uL (0.11-0.59); Monocytes % (auto) 6.4 %; Neutrophils # (auto) 12.49 K/uL (1.4-6.5); Neutrophils % (auto) 83.8 %; Platelet Count 274 K/uL (130-400); RDW Coefficient of Variation 13.6 % (11.5-14.5); RDW Standard Deviation 43.4 fL (36.4-46.3); Red Blood Count 3.79 M/uL (4.2-5.4); White Blood Count 14.91 K/uL (4.8-10.8)
[2018-05-29 08:26] LABS: Partial Thromboplastin Ratio 1.3; Partial Thromboplastin Time 34.6 Seconds (21.0-31.0)
[2018-05-29 08:39] LABS: Estimated Average Glucose 143 mg/dl; Hemoglobin A1C 6.6 % (4.5-5.6)
[2018-05-29 08:45] LABS: Albumin Level 1.9 gm/dl (3.4-5.0); Calcium 8.3 mg/dl (8.5-10.1); Creatinine Clr Calc Pharmacy 55.4 ml/min; Est GFR (African American) 62.5; Est GFR (Non-African American) 53.9; Magnesium 2.6 mg/dl (1.8-2.4); Potassium 4.8 mmol/L (3.5-5.1)
[2018-05-29 08:50] LABS: Albumin Globulin Ratio 0.3 (0.9-2); Bilirubin,Total 0.5 mg/dl (0.2-1); Globulin 5.9 gm/dl (2.5-4.0); Total Protein 7.8 gm/dl (6.4-8.2); Troponin I 0.104 ng/ml (0-0.045)
--- NOTE | 2018-05-29 08:50 | Cardiology Consultation ---
Date of Consultation May 29, 2018 Assessment & Plan (1) Pneumonia: Recently treated for strep pharyngitis. Cultures pending at this time. Continue antibiotics per internal medicine. (2) Strep pharyngitis: Continue Rocephin. (3) Paroxysmal atrial fibrillation: Spontaneously converted to sinus rhythm with beta-william therapy. Continue metoprolol 25 mg twice daily. Await results of resting 2D transtho racic echocardiogram. Will likely discontinue intravenous heparin if no recurrence. (4) Pericardial effusion without cardiac tamponade: Resting 2D transthoracic echocardiogram pending at this time. (5) Pleural effusion: Secondary to pneumonia. (6) Coronary artery calcification seen on CAT scan: (7) Elevated troponin I level: Secondary to underlying illness, hypoxia related to pneumonia, and atrial fibrillation with rapid ventricular response. Repeat ECG pending this a.m. History of Present Illness Reason for Consultation: Paroxysmal atrial fibrillation Pericardial effusion Elevated troponin Requesting Physician: Dr. Waller Attending Physician: Noemí Pride MD History of Present Illness 72-year-old female admitted to the emergency department with shortness of breath. Recently diagnosed with streptococcal pharyngitis. Developed p rogressive shortness of breath over the past 5 days. Positive orthopnea without PND. No edema or weight gain. Notes nonproductive cough, subjective fevers as well. Patient reports pleuritic chest pain for several days. Pain worse when lying on her left side as well as with deep inspiration and cough. ECG on admission demonstrates atrial fibrillation with rapid ventricular response. Patient felt significantly short of breath upon presentation, however, denies palpitations. CTA of the chest performed in the emergency department negative for pulmonary embolus, however, demonstrates left-sided pleural effusion, moderate pericardial effusion, as well as possible left lower lobe infiltrate. Allergies Allergy/AdvReac Type Severity Reaction Status Date / Time No Known Allergies Allergy Verified 05/28/18 20:47 Home Medications Home Medications Medication Instructions Recorded Confirmed Type aspirin [Aspir-81] 1 tab PO DAILY 05/28/18 05/28/18 History atorvastatin 20 mg PO PM 05/28/18 05/28/18 History calcium carbonate-vitamin D3 1 cap PO DAILY 05/28/18 05/28/18 History [Calcium 600 + D(3)] cholecalciferol (vitamin D3) 1,000 unit PO DAILY 05/28/18 05/28/18 History [Vitamin D3] citalopram [Celexa] 20 mg PO DAILY 05/28/18 05/28/18 History ilska-jn-7-yra-bqp-lbagqhe-ast 1 cap PO DAILY 05/28/18 05/28/18 History [krill oil] levothyroxine [Synthroid] 125 mcg PO DAILY 05/28/18 05/28/18 History penicillin V potassium 500 mg PO TID 05/28/18 05/28/18 History trazodone 1 tab PO HS 05/28/18 05/28/18 History Patient History Medical History History of hysterectomy (Chronic) Graves disease (Chronic) Depression (Chronic) Prediabetes (Chronic) High cholesterol (Chronic) Melanoma (Resolved) Family history non-contributory Surgical History History of cholecystectomy (Chronic) History of appendectomy (Chronic) Family History Other CAD (coronary artery disease) Social History Preferred Language: B[place] Communication Ability: Effective General Dentist Required: No Beliefs That Will Affect Care: Anglican Current Living Situation: Spouse Other Information That Helps Us Care for You: No Feels Safe at Home: Yes Safety Concerns: Feels Safe At This Time Smoking Status: Never smoker Hx Alcohol Use: No Hx Substance Use: No Review of Systems Pertinent positives noted per HPI, conference of 10 system review otherwise negative. Physical Exam Vital Signs (Past 24 Hours): Last Vital Signs Temp 36.5 C 05/29/18 07:34 Pulse 70 05/29/18 07:34 Resp 18 05/29/18 07:34 BP 122/81 05/29/18 07:34 Pulse Ox 94 05/29/18 07:34 Physical Exam: General: NAD, AAO x3, well nourished. HEENT: Normocephalic. Atraumatic. Conjunctiva pink, no scleral icterus. Neck: No carotid bruits, the carotid upstrokes are brisk. No JVD. No HJR Heart: Regular normal S-1 and S-2 no S-3 or S-4 gallop. No murmurs or rub appreciated. PMI is not displaced. No RV heave. Lungs: Poor effort due to pleuritic chest discomfort, diminished breath sounds at the bases bilaterally, scant crackles at the left base. No wheezing. Abdomen: Normal bowel sounds. Soft. Nontender. No masses or organomegaly. No abdominal bruits. Extremities: No clubbing, cyanosis, or edema. Pulses: radial=2/4, posterior tibial=2/4. Neuro: Cranial nerves grossly intact. No focal motor deficit. (1) Pneumonia Laterality: unspecified laterality Lung location: unspecified part of lung Pneumonia type: due to unspecified organism Qualified Code(s): J18.9 - Pneumonia, unspecified organism
[2018-05-29] MEDS ORDERED: HEPARIN IV BOLUS 4,500 UNITS in SYRINGE 0 ML IV ONE ×2 (09:15→17:45)
[2018-05-29] MEDS: INSULIN ASPART 100 UNITS/ML 3 ML PEN SC SCH ×4 (09:30→21:10)
[2018-05-29] MEDS: COLCHICINE 0.6 MG TAB PO SCH ×2 (09:31→20:26)
[2018-05-29] MEDS: DOXYCYCLINE HYCLATE 100 MG CAP PO SCH ×2 (09:31→20:26)
[2018-05-29] MEDS ORDERED: PERFLUTREN LIPID MICROSPHERE (DEFINITY) IV ONE (10:09)
--- NOTE | 2018-05-29 14:58 | Hospitalist Progress Note ---
Date of Service May 29, 2018 Assessment & Plan (1) Pneumonia: Dyspnea Present on admission with worsening SOB, fever associated with pleuritic chest pain CXR showed left basilar infiltrate concerning for pneumonia. CTA chest showed Small right and [id number] left pleural effusions with left greater than right bibasilar consolidation suggestive of probable atelectasis. NO evidence of PE Elevated WBC, Lactacte and procalcitonin on admission Flu influenza PCR negative WBC trending down and Lactate back to normal Blood cx pending Continue Doxy and Rocephin for now Continue oxygen supplement and solumedrol Continue monitor (2) Strep pharyngitis: Had negative rapid strep test on 05/24/18 with f/u PCR results on 05/27/18 +Group A strep. Was on PCN 05/27/18. Continue IV Rocephin (3) Atrial fibrillation with rapid ventricular response: Present in the ER with Afib RVR Mostly due to acute illness Cuurrently on NSR with rate control CTA chest showed Moderate cardiomegaly with moderate sized pericardial effusion. TSH wnl Cardiology on board recommended to Continue metoprolol 25 mg twice daily. On heparin drip now if remains on NSR, will consider to d/c heparin drip Echo report pending Continue monitor in tele (4) Elevated troponin: Mostly due to demand ischemia from Afib RVR Elevated troponin on admission Troponin trending down On metoprolol, heparin drip and statin Cardio on board Echo pending (5) Hypokalemia: K stable Monitor BMP (6) Hyperglycemia: Recent Hba1c 6.6 on 06/12 Counseling on lifestyles modification and follow a healthy diet On Lantus, Novolog sliding scale while in the hospital Repeat Hba1c in 6 months (7) High cholesterol: Cholesterol and LDL at goal Continue statin DVT Prophylaxis on heparin drip for now Code status Full Code Disposition Continue monitor in Tele Subjective Pt was seen and examined Lying in bed with no distress Pt said that she continues to have a hard time to breath She said that whenever she takes a deep breath it causes her to have a chest pain She denies any cough, palpitation, and fever. Physical Exam Vital Signs (Past 24 Hours): Last Vital Signs Temp 37.2 C 05/29/18 11:09 Pulse 65 05/29/18 11:09 Resp 18 05/29/18 11:09 BP 143/85 H 05/29/18 11:09 Pulse Ox 91 05/29/18 11:09 Physical Exam: General- No acute distress Head- atraumatic Eyes- PERRL, EOMI, ENT- oropharynx clear Neck- supple, no JVD Lungs- diminish breath sound due to pleuritic chest pain Heart- regular rhythm; no murmur Abdomen- normal bowel sounds, soft, nontender Extremities- no calf tenderness Neuro- alert, oriented x 3; PERRL, EOMI; no facial palsy; no dysarthria Skin- warm & dry (1) Pneumonia Laterality: unspecified laterality Lung location: unspecified part of lung Pneumonia type: due to unspecified organism Qualified Code(s): J18.9 - Pneumonia, unspecified organism
[2018-05-29 15:58] LABS: Partial Thromboplastin Ratio 1.5; Partial Thromboplastin Time 40.9 Seconds (21.0-31.0)
[2018-05-30] MEDS: methylPREDNISolone 20 MG in SYRINGE 0 ML IV SCH ×3 (00:28→17:07)
[2018-05-30] MEDS: cefTRIAXone SODIUM 1,000 MG in DEXTROSE 5% 50 ML IV SCH (00:29)
[2018-05-30 01:08] LABS: Partial Thromboplastin Ratio 1.8
[2018-05-30 01:11] LABS: Partial Thromboplastin Time 49.3 Seconds (21.0-31.0)
[2018-05-30] MEDS ORDERED: ACETAMINOPHEN 500 MG TAB PO PRN (02:49)
[2018-05-30] MEDS ORDERED: OXYCODONE HCL SOLN 5 MG/5 ML UDC PO PRN (02:49)
[2018-05-30] MEDS: HEPARIN SODIUM/DEXTROSE 25,000 UNITS/500 ML BAG IV SCH (03:32)
[2018-05-30 07:38] LABS: Partial Thromboplastin Ratio 1.4; Partial Thromboplastin Time 37.6 Seconds (21.0-31.0)
[2018-05-30] MEDS ORDERED: HEPARIN IV BOLUS 4,500 UNITS in SYRINGE 0 ML IV STA (08:30)
[2018-05-30] MEDS: INSULIN GLARGINE SOLOSTAR 100 UNITS/ML 3 ML PEN SC SCH ×2 (08:34→20:50)
[2018-05-30] MEDS: INSULIN ASPART 100 UNITS/ML 3 ML PEN SC SCH ×4 (08:35→20:51)
[2018-05-30] MEDS: METOPROLOL TARTRATE 25 MG TAB PO SCH ×2 (08:36→20:50)
[2018-05-30] MEDS: DOXYCYCLINE HYCLATE 100 MG CAP PO SCH ×2 (08:36→20:50)
[2018-05-30] MEDS: COLCHICINE 0.6 MG TAB PO SCH ×2 (08:36→20:50)
[2018-05-30 08:38] LABS: Basophils # (auto) 0.01 K/uL (0-0.2); Basophils % (auto) 0.1 %; Eosinophils # (auto) 0.01 K/uL (0-0.5); Eosinophils % (auto) 0.1 %; Hematocrit (blood only) 30.4 % (37-47); Hemoglobin 9.9 g/dL (12.0-16.0); Immature Granulocytes % (auto) 1.8 %; Lymphocytes # (auto) 1.13 K/uL (1.2-3.4); Lymphocytes % (auto) 6.6 %; Mean Corpuscular Hgb Conc 32.6 g/dL (32-36); Mean Corpuscular Volume 87.4 fL (80-100); Mean Platelet Volume 10.3 fL (7.4-10.4); Monocytes # (auto) 1.08 K/uL (0.11-0.59); Monocytes % (auto) 6.3 %; Neutrophils # (auto) 14.59 K/uL (1.4-6.5); Neutrophils % (auto) 85.1 %; Platelet Count 280 K/uL (130-400); RDW Coefficient of Variation 13.9 % (11.5-14.5); RDW Standard Deviation 44.5 fL (36.4-46.3); Red Blood Count 3.48 M/uL (4.2-5.4); White Blood Count 17.12 K/uL (4.8-10.8)
[2018-05-30 08:43] LABS: BUN Creatinine Ratio 29.5 (10-20); Calcium 8.1 mg/dl (8.5-10.1); Est GFR (African American) 75.5; Est GFR (Non-African American) 65.2; Potassium 4.6 mmol/L (3.5-5.1)
--- NOTE | 2018-05-30 12:51 | Cardiology Progress Note ---
Date of Service May 30, 2018 Assessment & Plan (1) Pericardial effusion without cardiac tamponade: Moderate pericardial effusion secondary to pericarditis related to acute pneumonia/infectious process. Clinically improving with intravenous steroids. Would recommend a slow steroid trend over 4 weeks. Will add colchicine. Daily ECG. Repeat LFTs in a.m. (2) Paroxysmal atrial fibrillation: Spontaneously converted to sinus rhythm with beta-william therapy. Continue metoprolol 25 mg twice daily. No recurrence since admission. Discontinue IV heparin. (3) Pleural effusion: Secondary to pneumonia. We will give 20 mg of intravenous Lasix today to improve symptoms. Fluid balance more than 2 L positive since admission due to IV therapies. (4) Elevated troponin I level: Secondary to underlying illness, hypoxia related to pneumonia, and atrial fibrillation with rapid ventricular response. ECG findings representing pericarditis. (5) Pneumonia: Recently treated for strep pharyngitis. Cultures pending at this time. Continue antibiotics per internal medicine. (6) Strep pharyngitis: Continue Rocephin. (7) Coronary artery calcification seen on CAT scan: Subjective Patient seen and examined at the bedside. Chest discomfort improved however, continues to note pleuritic pain with deep inspiration. No recurrent atrial fibrillation on telemetry. ECG demonstrates continued ST elevation. Review of Systems All systems reviewed & are unremarkable except as noted in HPI & below Physical Exam Vital Signs (Past 24 Hours): Last Vital Signs Temp 36.9 C 05/30/18 11:22 Pulse 54 L 05/30/18 11:22 Resp 17 05/30/18 11:22 BP 148/79 H 05/30/18 11:22 Pulse Ox 90 05/30/18 11:22 Physical Exam: General: NAD, AAO x3, well nourished. HEENT: Normocephalic. Atraumatic. Conjunctiva pink, no scleral icterus. Neck: No carotid bruits, the carotid upstrokes are brisk. No JVD. No HJR Heart: Regular normal S-1 and S-2 no S-3 or S-4 gallop. No murmurs or rub appreciated. PMI is not displaced. No RV heave. Lungs: Poor effort due to pleuritic discomfort. Diminished breath sounds at the bases with crackles in the lower lung mcgarry. No wheeze appreciated. abdomen: Normal bowel sounds. Soft. Nontender. No masses or organomegaly. No abdominal bruits. Extremities: No clubbing, or cyanosis. Trace bilateral pedal edema. Pulses: radial=2/4, Dorsalis pedis =2/4, posterior tibial=2/4. Neuro: Cranial nerves grossly intact. No focal motor deficit. (1) Pneumonia Laterality: unspecified laterality Lung location: unspecified part of lung Pneumonia type: due to unspecified organism Qualified Code(s): J18.9 - Pneumonia, unspecified organism
[2018-05-30] MEDS ORDERED: FUROSEMIDE 20 MG in SYRINGE 0 ML IV ONE (13:30)
--- NOTE | 2018-05-30 17:02 | Hospitalist Progress Note ---
Date of Service May 30, 2018 Assessment & Plan (1) Pneumonia: Dyspnea Present on admission with worsening SOB, fever associated with pleuritic chest pain CXR showed left basilar infiltrate concerning for pneumonia. CTA chest showed Small right and [id number] left pleural effusions with left greater than right bibasilar consolidation suggestive of probable atelectasis. NO evidence of PE Elevated WBC, Lactacte and procalcitonin on admission Flu influenza PCR negative patient has been on ceftriaxone and Doxycycline since 05/29/18, continue doxycycline BID and switch ceftriaxone to Augmentin BID starting 05/30/18 blood cultures as no growth will hold off further solumedrol as patient's dyspnea appears to be improving Pleural effusion: Secondary to pneumonia. We will give 20 mg of intravenous Lasix today to improve symptoms. Fluid balance more than 2 L positive since admission due to IV therapies. (2) Strep pharyngitis: Had negative rapid strep test on 05/24/18 with f/u PCR results on 05/27/18 +Group A strep. Was on PCN 05/27/18. Continue antibiotics (3) Atrial fibrillation with rapid ventricular response: Paroxysmal atrial fibrillation Presented in the ER with Atrial fibrillation with rapid ventricular response Mostly due to acute illness Continue metoprolol 25 mg twice daily TSH wnl Currently on NSR with rate control heparin drip stopped on 05/30/18 will transfer off telemetry monitoring (4) Elevated troponin: Elevated troponin on admission and has trended down Secondary to underlying illness, hypoxia related to pneumonia, and atrial fibrillation with rapid ventricular response. ECG findings representing pericarditis. Coronary artery calcification seen on CAT scan: On metoprolol, and statin Pericardial effusion without cardiac tamponade: CTA chest showed Moderate cardiomegaly with moderate sized pericardial effusion. Moderate pericardial effusion secondary to pericarditis related to acute pneumonia/infectious process. Clinically improving with intravenous steroids. Would recommend a slow steroid trend over 4 weeks. Will add colchicine. Daily ECG. Repeat LFTs in a.m. (5) Hypokalemia: potassium currently at normal levels and stable (6) Hyperglycemia: Recent Hba1c 6.6 on 06/12 Counseling on lifestyles modification and follow a healthy diet On Lantus, Novolog sliding scale while in the hospital Repeat Hba1c in 6 months (7) High cholesterol: Cholesterol and LDL at goal Continue statin DVT Prophylaxis: off heparin drip on 05/30/18, switch to Lovenox 40 mg subcutaneous daily Code status Full Code Subjective Patient able to come off of nasal cannula intermittently. continued to be monitor whether nasal cannula oxygen still needed. Patient when on room air denies shortness of breath. reports chest discomfort from pericarditis better when leaning forwards. denies palpitations. denies abdominal pain. no vomiting Physical Exam Vital Signs (Past 24 Hours): Last Vital Signs Temp 36.7 C 05/30/18 15:24 Pulse 59 L 05/30/18 15:24 Resp 18 05/30/18 15:24 BP 144/78 H 05/30/18 15:24 Pulse Ox 85 L 05/30/18 15:24 Constitutional: WD/WN, vitals as above Eyes: PERRL, conjunctivae normal, anicteric sclerae EOM intact bilaterally ENMT: external ear and nose normal, oropharynx normal Neck: normal visual inspection and trachea midline Respiratory: normal respiratory effort, lungs clear to auscultation Cardiovascular: Rate/Rhythm: regular rhythm and + bradycardic Gastrointestinal (Abdomen): normal bowel sounds, soft, nontender, no hepatosplenomegaly Musculoskeletal: no cyanosis or clubbing, extremities motor strength 5/5 Head/Neck/Chest: normocephalic and head atraumatic Neurologic: PERRL, EOMI, accommodation nl, no face palsy, no dysarthria CN's II-XI intact bilaterally Psychiatric: A+Ox3, euthymic affect (1) Pneumonia Laterality: unspecified laterality Lung location: unspecified part of lung Pneumonia type: due to unspecified organism Qualified Code(s): J18.9 - Pneumonia, unspecified organism
[2018-05-30] MEDS ORDERED: COLCHICINE 0.6 MG TAB PO SCH (21:00)
[2018-05-31] MEDS: LEVOTHYROXINE SODIUM 125 MCG TABLET PO SCH (05:50)
[2018-05-31 06:18] LABS: Basophils # (auto) 0.01 K/uL (0-0.2); Basophils % (auto) 0.1 %; Hematocrit (blood only) 32.2 % (37-47); Hemoglobin 10.7 g/dL (12.0-16.0); Immature Granulocytes # (auto) 0.36 K/uL (0.00-0.02); Immature Granulocytes % (auto) 2.3 %; Lymphocytes # (auto) 1.61 K/uL (1.2-3.4); Lymphocytes % (auto) 10.2 %; Mean Corpuscular Hgb Conc 33.2 g/dL (32-36); Mean Corpuscular Volume 87.7 fL (80-100); Mean Platelet Volume 9.7 fL (7.4-10.4); Monocytes # (auto) 1.05 K/uL (0.11-0.59); Monocytes % (auto) 6.6 %; Neutrophils # (auto) 12.82 K/uL (1.4-6.5); Neutrophils % (auto) 80.8 %; Platelet Count 335 K/uL (130-400); RDW Coefficient of Variation 13.7 % (11.5-14.5); RDW Standard Deviation 44.4 fL (36.4-46.3); Red Blood Count 3.67 M/uL (4.2-5.4); White Blood Count 15.85 K/uL (4.8-10.8)
[2018-05-31 06:29] LABS: Partial Thromboplastin Ratio 0.9; Partial Thromboplastin Time 25.1 Seconds (21.0-31.0)
[2018-05-31 06:55] LABS: Albumin Level 1.9 gm/dl (3.4-5.0); BUN Creatinine Ratio 33.7 (10-20); Creatinine Clr Calc Pharmacy 66.5 ml/min; Est GFR (African American) 77.7; Potassium 4.4 mmol/L (3.5-5.1)
[2018-05-31 06:57] LABS: Albumin Globulin Ratio 0.3 (0.9-2); Bilirubin,Total 0.6 mg/dl (0.2-1); Globulin 5.5 gm/dl (2.5-4.0); Total Protein 7.4 gm/dl (6.4-8.2)
[2018-05-31] MEDS: ACETAMINOPHEN 325 MG TAB PO PRN ×2 (08:47→23:34)
[2018-05-31] MEDS: AMOXICILLIN/CLAVULANATE 875 MG TAB PO SCH ×2 (08:48→16:57)
[2018-05-31] MEDS: METOPROLOL TARTRATE 25 MG TAB PO SCH ×2 (08:48→20:45)
[2018-05-31] MEDS: COLCHICINE 0.6 MG TAB PO SCH ×2 (08:48→20:45)
[2018-05-31] MEDS: DOXYCYCLINE HYCLATE 100 MG CAP PO SCH ×2 (08:48→20:48)
[2018-05-31] MEDS: INSULIN ASPART 100 UNITS/ML 3 ML PEN SC SCH ×4 (08:51→20:47)
[2018-05-31] MEDS: INSULIN GLARGINE SOLOSTAR 100 UNITS/ML 3 ML PEN SC SCH ×2 (08:52→20:47)
[2018-05-31] MEDS: ENOXAPARIN INJ 40 MG/0.4 ML SYR SQ SCH (08:52)
[2018-05-31] MEDS ORDERED: FUROSEMIDE 20 MG in SYRINGE 0 ML IV ONE (11:45)
--- NOTE | 2018-05-31 14:40 | XRay Report ---
XR chest 2V routine CLINICAL HISTORY: 72 years-old Female presenting with follow up lung infiltrates. TECHNIQUE: PA and lateral views of the chest were obtained. COMPARISON: 05/28/2018. FINDINGS: Atherosclerosis of the aortic arch. Cardiac silhouette enlarged. Pulmonary aeration of the lung bases though there may be slight improvement in comparison to prior. Small right and moderate left pleural effusions. Decreased pulmonary vascular prominence. No pneumothorax. Degenerative changes of the tho racic spine. Upper abdomen normal. IMPRESSION: 1. Small right and moderate left pleural effusions unchanged. 2. Stable to slight interval improvement in bibasilar lung aeration. 3. Decreased volume overload in the setting of cardiomegaly. Electronically signed by: Oren Larios M.D. 05/31/2018 2:38 PM
--- NOTE | 2018-05-31 17:26 | Cardiology Progress Note ---
Date of Service May 31, 2018 Assessment & Plan (1) Pericardial effusion without cardiac tamponade: Moderate pericardial effusion secondary to pericarditis related to acute pneumonia/infectious process. Clinically improving with intravenous steroids. Would recommend a slow steroid trend over 4 weeks. Will add colchicine. Daily ECG. Given persistent symptoms we will repeat echocardiogram in a.m. Patient relatively bradycardic at rest will reduce metoprolol 12.5 mg twice per day (2) Paroxysmal atrial fibrillation: No recurrence on exam (3) Pleural effusion: Secondary to pneumonia. (4) Elevated troponin I level: Secondary to underlying illness, hypoxia related to pneumonia, and atrial fibrillation with rapid ventricular response. ECG findings representing pericarditis. (5) Pneumonia: Recently treated for strep pharyngitis. Cultures pending at this time. Continue antibiotics per internal medicine. (6) Strep pharyngitis: Continue Rocephin. (7) Coronary artery calcification seen on CAT scan: Subjective Patient seen and examined at the bedside. Still with significant pleuritic pain Physical Exam Vital Signs (Past 24 Hours): Last Vital Signs Temp 37.1 C 05/31/18 15:00 Pulse 53 L 05/31/18 15:00 Resp 23 05/31/18 15:00 BP 139/63 05/31/18 15:00 Pulse Ox 94 05/31/18 15:00 Constitutional: WD/WN, vitals as above ENMT: external ear and nose normal, oropharynx normal Respiratory: Auscultation: + diminished lung sounds (Left base) Splinting with deep inspiration Cardiovascular: Rate/Rhythm: regular rate and regular rhythm Heart Sounds: normal S2 and + cardiac rub Gastrointestinal (Abdomen): normal bowel sounds, soft, nontender, no hepatosplenomegaly (1) Pneumonia Laterality: unspecified laterality Lung location: unspecified part of lung Pneumonia type: due to unspecified organism Qualified Code(s): J18.9 - Pneumonia, unspecified organism
--- NOTE | 2018-05-31 17:36 | Hospitalist Progress Note ---
Date of Service May 31, 2018 Assessment & Plan (1) Pneumonia: Dyspnea Present on admission with worsening SOB, fever associated with pleuritic chest pain CXR showed left basilar infiltrate concerning for pneumonia. CTA chest showed Small right and [id number] left pleural effusions with left greater than right bibasilar consolidation suggestive of probable atelectasis. No evidence of PE Elevated WBC, Lactacte and procalcitonin on admission Flu influenza PCR negative patient has been on ceftriaxone and Doxycycline since 05/29/18, continue doxycycline BID and switch ceftriaxone to Augmentin BID starting 05/30/18 blood cultures as no growth will hold off further solumedrol as patient's dyspnea appears to be improving. on oral prednisone Pleural effusion: Secondary to pneumonia. will continue Lasix as 20 mg IV BID Chest X ray on 05/31/18 shows improved lung aeration (2) Strep pharyngitis: Had negative rapid strep test on 05/24/18 with f/u PCR results on 05/27/18 +Group A strep. Was on PCN 05/27/18. Continue antibiotics (3) Atrial fibrillation with rapid ventricular response: Paroxysmal atrial fibrillation Presented in the ER with Atrial fibrillation with rapid ventricular response Mostly due to acute illness TSH wnl Currently on NSR with rate control heparin drip stopped on 05/30/18 is off telemetry monitoring will reduce metoprolol from 25 mg BID to 12.5 mg BID as per cardiology service (4) Elevated troponin: Elevated troponin on admission and has trended down Secondary to underlying illness, hypoxia related to pneumonia, and atrial fibrillation with rapid ventricular response. ECG findings representing pericarditis. Coronary artery calcification seen on CAT scan: On metoprolol, and statin Pericardial effusion without cardiac tamponade: CTA chest showed Moderate cardiomegaly with moderate sized pericardial effusion. Moderate pericardial effusion secondary to pericarditis related to acute pneumonia/infectious process. Clinically improvedwith intravenous steroids on oral prednisone with plans for slow steroid trend over 4 weeks colchicine BID (5) Hypokalemia: potassium currently at normal levels and stable (6) Hyperglycemia: Recent Hba1c 6.6 on 06/12 Counseling on lifestyles modification and follow a healthy diet On Lantus, Novolog sliding scale while in the hospital (7) High cholesterol: Cholesterol and LDL at goal Continue statin DVT Prophylaxis: off heparin drip on 05/30/18, currently on Lovenox 40 mg subcutaneous daily Code status Full Code Subjective Patient able to come off of nasal cannula intermittently. however, based on pulse oximetry as per nursing checks, patient needing nasal cannula oxygen to mainatin above 90% oxygen saturation patient denies acute chest discomfort. denies palpitations. denies abdominal pain. no vomiting Physical Exam Vital Signs (Past 24 Hours): Last Vital Signs Temp 37.1 C 05/31/18 15:00 Pulse 53 L 05/31/18 15:00 Resp 23 05/31/18 15:00 BP 139/63 05/31/18 15:00 Pulse Ox 94 05/31/18 15:00 Constitutional: WD/WN, vitals as above Eyes: PERRL, conjunctivae normal, anicteric sclerae EOM intact bilaterally ENMT: external ear and nose normal, oropharynx normal Neck: normal visual inspection and trachea midline Respiratory: normal respiratory effort, lungs clear to auscultation Cardiovascular: Rate/Rhythm: regular rhythm and + bradycardic Gastrointestinal (Abdomen): normal bowel sounds, soft, nontender, no hepatosplenomegaly Musculoskeletal: no cyanosis or clubbing, extremities motor strength 5/5 Head/Neck/Chest: normocephalic and head atraumatic Neurologic: PERRL, EOMI, accommodation nl, no face palsy, no dysarthria CN's II-XI intact bilaterally Psychiatric: A+Ox3, euthymic affect (1) Pneumonia Laterality: unspecified laterality Lung location: unspecified part of lung Pneumonia type: due to unspecified organism Qualified Code(s): J18.9 - Pneumonia, unspecified organism
[2018-05-31] MEDS: FUROSEMIDE 20 MG in SYRINGE 0 ML IV SCH (18:02)
[2018-05-31] MEDS: predniSONE 20 MG TAB PO SCH (18:09)
[2018-06-01] MEDS: LEVOTHYROXINE SODIUM 125 MCG TABLET PO SCH (05:50)
[2018-06-01] MEDS: predniSONE 20 MG TAB PO SCH (08:22)
[2018-06-01] MEDS: AMOXICILLIN/CLAVULANATE 875 MG TAB PO SCH ×2 (08:22→17:47)
[2018-06-01] MEDS: COLCHICINE 0.6 MG TAB PO SCH ×2 (08:22→21:02)
[2018-06-01] MEDS: ENOXAPARIN INJ 40 MG/0.4 ML SYR SQ SCH (08:23)
[2018-06-01] MEDS: DOXYCYCLINE HYCLATE 100 MG CAP PO SCH ×2 (08:23→21:02)
[2018-06-01 08:33] LABS: Calcium 8.4 mg/dl (8.5-10.1); Creatinine Clr Calc Pharmacy 64.3 ml/min; Est GFR (African American) 74.5; Est GFR (Non-African American) 64.3; Magnesium 2.1 mg/dl (1.8-2.4); Potassium 4.1 mmol/L (3.5-5.1)
[2018-06-01] MEDS: FUROSEMIDE 20 MG in SYRINGE 0 ML IV SCH (08:48)
[2018-06-01] MEDS: INSULIN GLARGINE SOLOSTAR 100 UNITS/ML 3 ML PEN SC SCH ×2 (08:49→21:00)
[2018-06-01] MEDS: INSULIN ASPART 100 UNITS/ML 3 ML PEN SC SCH ×4 (08:51→20:56)
[2018-06-01] MEDS: METOPROLOL TARTRATE 25 MG TAB PO SCH ×2 (08:52→21:02)
[2018-06-01] MEDS ORDERED: METOPROLOL TARTRATE 25 MG TAB PO STA (09:52)
--- NOTE | 2018-06-01 10:06 | Hospitalist Progress Note ---
Date of Service June 01, 2018 Assessment & Plan (1) Pneumonia: Dyspnea Present on admission with worsening SOB, fever associated with pleuritic chest pain CXR showed left basilar infiltrate concerning for pneumonia. CTA chest showed Small right and [id number] left pleural effusions with left greater than right bibasilar consolidation suggestive of probable atelectasis. No evidence of PE Elevated WBC, Lactacte and procalcitonin on admission Flu influenza PCR negative patient has been on ceftriaxone and Doxycycline since 05/29/18, continue doxycycline BID and switch ceftriaxone to Augmentin BID starting 05/30/18 blood cultures as no growth will hold off further solumedrol as patient's dyspnea appears to be improving. on oral prednisone Pleural effusion: Secondary to pneumonia. has been on Lasix as 20 mg IV BID Chest X ray on 05/31/18 shows improved lung aeration has received Lasix on 06/01/18 in AM. will re-evaluate when on telemetry any further Lasix needed tonight (2) Strep pharyngitis: Had negative rapid strep test on 05/24/18 with f/u PCR results on 05/27/18 +Group A strep. Was on PCN 05/27/18. Continue antibiotics (3) Atrial fibrillation with rapid ventricular response: Paroxysmal atrial fibrillation Presented in the ER with Atrial fibrillation with rapid ventricular response on 05/28/17 was on heparin drip which was stopped on 05/30/18 Heart rate controlled and in sinus bradycardia between 05/29/18 to 05/30/18 while on metoprolol and patient was transitioned off telemetry sena to medical sena 06/01/18: Patient had echocardiogram done earlier this morning. Patient then had received metoprolol 12.5 mg. Then medical doctor informed patient with tachycardia. Patient with atrial fibrillation and rapid ventricular response and EKG recorded heart rate of 140 bpm. Plans to give metoprolol 25 mg x 1 and transfer to telemetry floor in case IV rate control medications needed. Discussed with compliance field technician -will re-evalaute with cardiology service whether any plans for anticoagulation while on telemetry sena given this is recurrent atrial fibrillation with RVR (4) Elevated troponin: Elevated troponin on admission and has trended down Secondary to underlying illness, hypoxia related to pneumonia, and atrial fibrillation with rapid ventricular response. ECG findings representing pericarditis. Coronary artery calcification seen on CAT scan: On metoprolol, and statin Pericardial effusion without cardiac tamponade: CTA chest showed Moderate cardiomegaly with moderate sized pericardial effusion. Moderate pericardial effusion secondary to pericarditis related to acute pneumonia/infectious process. Clinically improvedwith intravenous steroids on oral prednisone with plans for slow steroid trend over 4 weeks colchicine BID (5) Hypokalemia: potassium currently at normal levels and stable (6) Hyperglycemia: Recent Hba1c 6.6 on 06/12 Counseling on lifestyles modification and follow a healthy diet On Lantus, Novolog sliding scale while in the hospital (7) High cholesterol: Cholesterol and LDL at goal Continue statin DVT Prophylaxis: off heparin drip on 05/30/18, currently on Lovenox 40 mg subcutaneous daily Code status Full Code Subjective Patient had echocardiogram done earlier this morning. Patient then had received metoprolol 12.5 mg Then medical doctor informed patient with tachycardia. Patient with atrial fibrillation and rapid ventricular response and EKG recorded heart rate of 140 bpm. Patient is comfortable. No distress. On nasal cannula. Denies chest pain or palpitations. denies abdominal pain. no vomiting. no lightheadedness. Plans to give metoprolol 25 mg x 1 and transfer to telemetry floor in case IV rate control medications needed. Discussed with compliance field technician Physical Exam Vital Signs (Past 24 Hours): Last Vital Signs Temp 36.5 C 06/01/18 07:39 Pulse 51 L 06/01/18 07:39 Resp 18 06/01/18 07:39 BP 148/72 H 06/01/18 07:39 Pulse Ox 94 06/01/18 07:39 Constitutional: WD/WN, vitals as above Eyes: PERRL, conjunctivae normal, anicteric sclerae EOM intact bilaterally ENMT: external ear and nose normal, oropharynx normal Neck: normal visual inspection and trachea midline Respiratory: normal respiratory effort, lungs clear to auscultation Cardiovascular: Rate/Rhythm: regular rhythm and + bradycardic Gastrointestinal (Abdomen): normal bowel sounds, soft, nontender, no hepatosplenomegaly Musculoskeletal: no cyanosis or clubbing, extremities motor strength 5/5 Head/Neck/Chest: normocephalic and head atraumatic Neurologic: PERRL, EOMI, accommodation nl, no face palsy, no dysarthria CN's II-XI intact bilaterally Psychiatric: A+Ox3, euthymic affect (1) Pneumonia Laterality: unspecified laterality Lung location: unspecified part of lung Pneumonia type: due to unspecified organism Qualified Code(s): J18.9 - Pneumonia, unspecified organism
[2018-06-01] MEDS ORDERED: METOPROLOL TARTRATE 1 MG/ML VIAL IV PRN (11:45)
--- NOTE | 2018-06-01 12:00 | Cardiology Progress Note ---
Date of Service June 01, 2018 Assessment & Plan (1) Paroxysmal atrial fibrillation: Patient relapsed into atrial fibrillation this morning. Metoprolol once again increased. Echocardiogram reviewed revealed nearly resolved pericardial effusion persistent left pleural effusion Will initiate full anticoagulation with heparin follow echocardiogram closely (2) Pericardial effusion without cardiac tamponade: Moderate pericardial effusion secondary to pericarditis related to acute pneumonia/infectious process. Clinically improving with intravenous steroids. Would recommend a slow steroid trend over 4 weeks. Will add colchicine. Daily ECG. Echocardiogram today demonstrates trivial pericardial effusion substantially improved from last study. Left pleural effusion remains persistent (3) Pleural effusion: Secondary to pneumonia. Pleural effusion remains persistent chest ultrasound to be ordered consideration may be made for consultation for thoracentesis, pulmonary input (4) Elevated troponin I level: Secondary to underlying illness, hypoxia related to pneumonia, and atrial fibrillation with rapid ventricular response. ECG findings representing pericarditis. (5) Pneumonia: Recently treated for strep pharyngitis. Cultures pending at this time. Continue antibiotics per internal medicine. (6) Strep pharyngitis: Continue Rocephin. (7) Coronary artery calcification seen on CAT scan: Subjective Patient seen and examined at the bedside. Pleuritic pain improved slightly today but did lapsed into atrial fibrillation earlier this morning heart rates 110-140. Patient denies fevers chills. Still has pain on deep inspiration notes no productive cough Physical Exam Vital Signs (Past 24 Hours): Last Vital Signs Temp 36.3 C L 06/01/18 11:04 Pulse 100 H 06/01/18 11:04 Resp 16 06/01/18 11:04 BP 117/71 06/01/18 11:04 Pulse Ox 93 06/01/18 11:04 Constitutional: WD/WN, vitals as above ENMT: external ear and nose normal, oropharynx normal Respiratory: Auscultation: + diminished lung sounds (Left base) Cardiovascular: Heart Sounds: normal S1, normal S2 and + cardiac rub Irregularly irregular Gastrointestinal (Abdomen): normal bowel sounds, soft, nontender, no hepatosplenomegaly Results & Data Laboratory Results Laboratory Results - last 24 hr 05/31/18 05/31/18 06/01/18 16:05 20:00 00:34 Sodium Potassium Chloride Carbon Dioxide Anion Gap BUN Creatinine Est Cr Clr Drug Dosing Est GFR ( Amer) Est GFR (Non-Af Amer) BUN/Creatinine Ratio Glucose POC Glucose 101 H 114 H Calcium Magnesium Troponin I 0.037 06/01/18 06/01/18 06/01/18 07:24 07:42 11:46 Sodium 138 Potassium 4.1 Chloride 101 Carbon Dioxide 30 Anion Gap 6.0 BUN 30 H Creatinine 0.89 Est Cr Clr Drug Dosing 64.3 Est GFR ( Amer) 74.5 Est GFR (Non-Af Amer) 64.3 BUN/Creatinine Ratio 33.0 H Glucose 116 H POC Glucose 114 H 151 H Calcium 8.4 L Magnesium 2.1 Troponin I ECG Additional Comments: Atrial fibrillation with rapid ventricular response with premature ventricular or aberrantly conducted complexes Nonspecific T wave abnormality Abnormal ECG When compared with ECG of 31-MAY-2018 23:46, (unconfirmed) Atrial fibrillation has replaced Sinus rhythm Vent. rate has increased BY 87 BPM Non-specific change in ST segment in Inferior leads ST now depressed in Anterior leads Nonspecific T wave abnormality, worse in Inferior leads T wave inversion now evident in Lateral leads (1) Pneumonia Laterality: unspecified laterality Lung location: unspecified part of lung Pneumonia type: due to unspecified organism Qualified Code(s): J18.9 - Pneumonia, unspecified organism
[2018-06-01] MEDS: Heparin IV Standard *NO* Bolus IV SCH (12:43)
[2018-06-01] MEDS ORDERED: ONDANSETRON INJ 2 MG/ML 2 ML VIAL IV PRN (12:48)
[2018-06-01] MEDS ORDERED: METOPROLOL TARTRATE 1 MG/ML VIAL IV ONE (13:00)
--- NOTE | 2018-06-01 14:04 | Procedure Note ---
Procedure Note Date of Service June 01, 2018 Note INDICATION: Left pleural effusion in the setting of pericardial effusion PROCEDURE: Left thoracentesis DATE: 06/01/2018 TIME: 1330 PROVIDER: Gabriele Torres PA-C CONSENT: Was obtained prior to the procedure by Dr. Mehta and placed on the chart PROCEDURE SUMMARY: Bedside ultra sound was performed to identify an appropriate puncture site. Images were saved to the [employer] system. A time out was performed. The patient was prepped and draped in a sterile manner using chlorhexidine scrub after the appropriate level was confirmed by ultrasound. 1% lidocaine was used to numb the region. A finder needle was then used under negative pressure to locate fluid and instill lidocaine into the pleural space. A total of 10 mL of 1% lidocaine was used. A small incision was made with a #10 scalpel. A needle with overlying catheter was advanced using negative pressure on the syringe until a pleural flash was obtained. The thoracentesis catheter was then threaded without difficulty and without any bleeding. The patient had 460 mL of straw-colored fluid removed. The incision site was then covered with two Band-Aids with no evidence of bleeding. No immediate complications were noted during the procedure. Dr. Mehta and Dr. Lutz were contacted after the procedure with results. A post-procedure chest x-ray was completed and reviewed at bedside by this provider and no pneumothorax was identified. The patient tolerated the procedure well with no shortness of breath, no hypotension, no increase in heart rate, and no other acute symptoms. Supervising Physician Co-Signing Physician Notes I was present with the Mr. Gabriele Roman PAULINE Torres throughout the procedure. The patient tolerated the procedure very well. Repeat chest x-ray was obtained which did not reveal any complications such as pneumothorax. Also significant improvement on left-sided pleural effusion. Dr. Paulina MEHTA
--- NOTE | 2018-06-01 14:05 | XRay Report ---
XR chest 1V portable CLINICAL HISTORY: 72 years-old Female presenting with S/P left thoracentesis. TECHNIQUE: PA and lateral views of the chest were obtained. COMPARISON: 06/10/2018 and CTA chest from 05/28/2018. FINDINGS: Cardiac silhouette mildly enlarged. Interval decreased size of the left pleural effusion, which is no w small. Small right pleural effusion unchanged. Bibasilar opacities with improved aeration of the le ft lung base. No pneumothorax. Osseous structures normal. External leads overlie the right upper quad rant relating evaluation of this region. IMPRESSION: 1. Decreased size of the left pleural effusion. No pneumothorax status post thoracentesis. 2. Persistent small right pleural effusion. 3. Persistent bibasilar atelectasis though improved aeration of the left lung base. 4. Cardiomegaly. Electronically signed by: Oren Larios M.D. 06/01/2018 2:04 PM
[2018-06-01] MEDS ORDERED: HEPARIN STANDARD DEXTROSE 25,000 UNITS/500 ML IV SCH (14:15)
[2018-06-01 14:37] LABS: Albumin Level 2.2 gm/dl (3.4-5.0)
[2018-06-01 14:43] LABS: Calcium 8.8 mg/dl (8.5-10.1); Est GFR (African American) 60.3; Potassium 4.1 mmol/L (3.5-5.1)
[2018-06-01 14:47] LABS: Albumin Globulin Ratio 0.3 (0.9-2); Bilirubin,Total 0.7 mg/dl (0.2-1); Globulin 6.4 gm/dl (2.5-4.0); Total Protein 8.6 gm/dl (6.4-8.2)
[2018-06-01 14:57] LABS: Total Protein Pleural Fluid 4.4 g/dl
[2018-06-01 15:03] LABS: Appearance Pleural Fluid CLOUDY; Color Pleural Fluid YELLOW; Mononuclear WBC Pleural 41.8 %; Polynuclear WBC Pleural 58.2 %; RBC Pleural Fluid (A) 4000 /uL; Source Pleural Fluid LEFT LUNG; WBC Pleural Fluid (A) 3474 /uL
--- NOTE | 2018-06-01 15:49 | Pulmonary Consultation ---
Date of Consultation June 01, 2018 Assessment & Plan (1) Pleural effusion: The patient had thoracentesis done after she was explained and informed consent was obtained and aseptic sterile precaution. We had removed almost 500 cc of pleural effusion which was sent for chemistry as well as cell count as well as microbiology culture and sensitivity AFB fungus and cytology. The patient has improved significantly post thoracentesis in fact she has also converted to sinus rhythm. We will monitor her very closely and we will also monitor the pleural effusion results. (2) Pericardial effusion without cardiac tamponade: Moderate pericardial effusion secondary to pericarditis related to acute pneumonia/infectious process. Clinically improving with intravenous steroids. Would recommend a slow steroid trend over 4 weeks. Will add colchicine. Daily ECG. (3) Paroxysmal atrial fibrillation: Currently she is on medication. She was also started on IV heparin. The atrial fibrillation has converted to sinus rhythm. Currently she is being followed by gear lapper. The patient was also started on metoprolol. (4) Hypoxia: Currently she is on 2 L of O2 via nasal cannula and has improved significantly. She is oxygenating well and not in any acute distress. (5) Pneumonia: The patient remains on antibiotics. She is afebrile and denies having any chest pain. We have done a thoracentesis on the left side of the chest and the fluids was sent for chemistry as well as pH cell count and microbiology culture and sensitivity. Will follow the results. Have discussed with the patient as well as family members explained about her current medical condition and plan of care. I also discussed referring physician and a gear lapper. I have spent greater than 55 minutes of clinical time. Laterality: unspecified laterality Lung location: unspecified part of lung Pneumonia type: due to unspecified organism Qualified Code(s): J18.9 - Pneumonia, unspecified organism History of Present Illness Reason for Consultation: Left pleural effusion/thoracentesis. Requesting Physician: Randolph Redding MD Attending Physician: Randolph Redding MD History of Present Illness Pt is 72 y/o F with PMH depression, HLD, prediabetes, Grave's disease s/p ablation now on replacement therapy, h/o melanoma presented to ER with c/o SOB. Pt states 5 days ago started with fever/chills, myaligas, arthralgias and sore throat Reports throat very sore and had limited oral intake past several days. Was alternating Tylenol and Ibuprofen with limited pain relief. Jorge Alberto didn't take her Rx medications for past 4 days. States is now able to swallow better and is swallowing her secretions without difficulty. Reports has been worn out and sitting around most of the day for past several days. Was seen at PCP office on 05/24/18 and had documented T: 102.9F. Initial diagnosis probable influenza and had negative rapid strep test. 05/27/18 PCR +Group A strep and pt was started on PCN. Pt states over past several days developed SOB, orthopnea, pleuritic CP. C/O aching across upper back. Denies productive cough or hemoptysis. [place] some lightheadeness with standing. States had red rash to anterior neck on symptom onset which has since resolved. Denies other rashes. Pt denies hx known a-fib. Reports over past several years has had intermittent "fluttering in chest" that occurs with activity and lasts several seconds and resolves. Never thought to mention the palpiation symptoms to anyone in the past. Denies N/V/D/C, syncope, vision changes, neck pain, otalgia, rhinorrhea, abdominal pain, paresthesias, extremity edema, urinary symptoms, melena, hematochezia, epistaxis. Denies hx DVT/PE or known clotting disorder. Denies hx CHF. The patient currently is sitting in the bed and has some chest discomfort but breathing comfortably and denies having any shortness of breath. She also denies having any chest pain. She was also diagnosed with pericardial effusion and she has been diuresed and she is on anti-inflammatory drugs as well and she had echocardiogram done which revealed moderate left-sided pleural effusion and we are consulted for thoracentesis. Allergies Allergy/AdvReac Type Severity Reaction Status Date / Time No Known Allergies Allergy Verified 05/28/18 20:47 Home Medications Home Medications Medication Instructions Recorded Confirmed Type aspirin [Aspir-81] 1 tab PO DAILY 05/28/18 05/28/18 History atorvastatin 20 mg PO PM 05/28/18 05/28/18 History calcium carbonate-vitamin D3 1 cap PO DAILY 05/28/18 05/28/18 History [Calcium 600 + D(3)] cholecalciferol (vitamin D3) 1,000 unit PO DAILY 05/28/18 05/28/18 History [Vitamin D3] citalopram [Celexa] 20 mg PO DAILY 05/28/18 05/28/18 History levsz-ji-2-vrv-shk-opdegwp-ast 1 cap PO DAILY 05/28/18 05/28/18 History [krill oil] levothyroxine [Synthroid] 125 mcg PO DAILY 05/28/18 05/28/18 History penicillin V potassium 500 mg PO TID 05/28/18 05/28/18 History trazodone 1 tab PO HS 05/28/18 05/28/18 History Patient History Medical History History of hysterectomy (Chronic) Graves disease (Chronic) Depression (Chronic) Prediabetes (Chronic) High cholesterol (Chronic) Melanoma (Resolved) Family history non-contributory Surgical History History of cholecystectomy (Chronic) History of appendectomy (Chronic) Family History Other CAD (coronary artery disease) Social History Preferred Language: Syriac Communication Ability: Effective Sizer Hand Required: No Beliefs That Will Affect Care: Hinduism Current Living Situation: Spouse Other Information That Helps Us Care for You: No Feels Safe at Home: Yes Safety Concerns: Feels Safe At This Time Smoking Status: Never smoker Hx Alcohol Use: No Hx Substance Use: No Review of Systems Review of system is as mentioned above in the history and physical. The patient denies having any headache dizziness or syncopal episode. Her shortness of breath seems to be stabilizing and also chest discomfort seems to be improving. Does not have any cough fever chills or hemoptysis. Also denies having any chest pain at this time. Also denies having any abdominal pain nausea vomiting. She also denies having any blood in the stool urine no painful micturition. Also denies having any swollen extremities no skin rash no lesions no swollen joints. Physical Exam Vital Signs (Past 24 Hours): Last Vital Signs Temp 36.3 C L 06/01/18 11:04 Pulse 100 H 06/01/18 12:50 Resp 16 06/01/18 11:04 BP 117/71 06/01/18 12:50 Pulse Ox 93 06/01/18 11:04 Physical Exam: CONSTITUTIONAL: WD/WN, vitals as above. Sitting in the bed and not in any acute distress. EYES: PERRL, conjunctivae normal, anicteric sclerae EOM intact bilaterally ENMT: external ear and nose normal, oropharynx normal NECK: normal visual inspection and trachea midline. No cervical or supraclavicular adenopathy. RESPIRATORY: normal respiratory effort, lungs clear to auscultation with decreased breath sound at left base. Also dullness on percussion at left base. CARDIOVASCULAR: Irregularly irregular/bradycardia. Rate controlled. No murmur can be appreciated. GASTROINTESTINAL (ABDOMEN): normal bowel sounds, soft, nontender, no hepatosplenomegaly MUSCULOSKELETAL: no cyanosis or clubbing, extremities motor strength 5/5 Head/Neck/Chest: normocephalic and head atraumatic, no edema of limbs. NEUROLOGIC: PERRL, EOMI, accommodation nl, no face palsy, no dysarthria CN's II-XI intact bilaterally. Moves all the extremities. PSYCHIATRIC: A+Ox3, euthymic affect Results & Data Laboratory Results Abnormal lab results 05/31/18 05/31/18 06/01/18 Range/Units 16:05 20:00 07:24 Sodium (136-145) mmol/L BUN 30 H (7-18) mg/dl BUN/Creatinine Ratio 33.0 H (10-20) Glucose 116 H (70-99) mg/dl POC Glucose 101 H 114 H (70-99) Calcium 8.4 L (8.5-10.1) mg/dl AST (15-37) U/L ALT (12-78) U/L Alkaline Phosphatase (45-117) U/L Lactate Dehydrogenase (84-246) U/L Total Protein (6.4-8.2) gm/dl Albumin (3.4-5.0) gm/dl Globulin (2.5-4.0) gm/dl Albumin/Globulin Ratio (0.9-2) Pleural pH (7.3-7.4) 06/01/18 06/01/18 06/01/18 Range/Units 07:42 11:46 14:07 Sodium (136-145) mmol/L BUN (7-18) mg/dl BUN/Creatinine Ratio (10-20) Glucose (70-99) mg/dl POC Glucose 114 H 151 H (70-99) Calcium (8.5-10.1) mg/dl AST (15-37) U/L ALT (12-78) U/L Alkaline Phosphatase (45-117) U/L Lactate Dehydrogenase 387 H (84-246) U/L Total Protein (6.4-8.2) gm/dl Albumin (3.4-5.0) gm/dl Globulin (2.5-4.0) gm/dl Albumin/Globulin Ratio (0.9-2) Pleural pH (7.3-7.4) 06/01/18 06/01/18 Range/Units 14:07 Unknown Sodium 134 L (136-145) mmol/L BUN 31 H (7-18) mg/dl BUN/Creatinine Ratio 29.0 H (10-20) Glucose 154 H (70-99) mg/dl POC Glucose (70-99) Calcium (8.5-10.1) mg/dl AST 187 H (15-37) U/L ALT 379 H (12-78) U/L Alkaline Phosphatase 175 H (45-117) U/L Lactate Dehydrogenase (84-246) U/L Total Protein 8.6 H (6.4-8.2) gm/dl Albumin 2.2 L (3.4-5.0) gm/dl Globulin 6.4 H (2.5-4.0) gm/dl Albumin/Globulin Ratio 0.3 L (0.9-2) Pleural pH 7.41 H (7.3-7.4) Diagnostic Findings CTA: Moderate multichamber cardiac enlargement. Moderate sized pericardial effusion measures up to 1.5 cm posteriorly. No associated pericardial thickening or enhancement identified. Study is limited secondary to respiratory motion artifact. Coronary arterial calcifications are noted. No thoracic aortic aneurysm or dissection. Patency of the imaged great vessels. Reflux of contrast into the hepatic veins and IVC. Pulmonary arterial tree is opacified to the level of the subsegmental branches. The segmental and subsegmental branches however are suboptimally visualized secondary to respiratory motion artifact. No focal filling defects identified to suggest pulmonary thromboembolic disease. CT CHEST: Normal thyroid parenchyma is not visualized. Enlarged AP window with prominent paratracheal and subcarinal lymph nodes are indeterminate. Small right and [id number] left pleural effusions. There is no pneumothorax. Mild biapical pleural-parenchymal scarring. Respiratory motion limits evaluation of the lung bases. Right basilar opacities suggest atelectasis. Left basilar consolidation is noted. Bilateral bronchial wall thickening. No significant intralobular septal thickening. Air noted throughout the esophagus. Partially imaged 3.47 m cystic structure of the left upper abdomen suggestive of a renal cyst. Soft tissues and breast parenchyma appear unremarkable. The bones appear to be intact. Degenerative changes of the shoulders and spine. IMPRESSION: 1. Study limited secondary to respiratory motion. Within the limitations of the study there is no acute aortic pathology or evidence of pulmonary thromboembolic disease identified. 2. Moderate cardiomegaly with moderate sized pericardial effusion. 3. Small right and [id number] left pleural effusions with left greater than right bibasilar consolidation suggestive of probable atelectasis. Superimposed pneumonitis difficult to exclude. 4. Mild mediastinal adenopathy, likely reactive. Electronically signed by: Myles Erwin M.D. 05/29/2018 6:54 AM FINDINGS: Cardiac silhouette mildly enlarged. Interval decreased size of the left pleural effusion, which is now small. Small right pleural effusion unchanged. Bibasilar opacities with improved aeration of the left lung base. No pneumothorax. Osseous structures normal. External leads overlie the right upper quadrant relating evaluation of this region. IMPRESSION: 1. Decreased size of the left pleural effusion. No pneumothorax status post thoracentesis. 2. Persistent small right pleural effusion. 3. Persistent bibasilar atelectasis though improved aeration of the left lung base. 4. Cardiomegaly. Electronically signed by: Oren Larios M.D. 06/01/2018 2:04 PM ECHOCARDIOGRAM: INTERPRETATION SUMMARY: There is trivial size circumferential epicardial effusion without hemodynamic significance. Improved from prior examination of 05/29/2018. Moderate size left pleural effusion. The left ventricle is normal in size. There is normal left ventricular wall thickness. The left ventricular wall motion is normal. Ejection fraction was 55-60%. Medications Administered Current Inpatient Medications Acetaminophen (Tylenol) 325 mg PO Q4H PRN PRN Reason: Pain or Fever Stop: 06/29/18 19:58 Last Admin: 05/31/18 23:34 Dose: 325 mg Documented by: Amoxicillin/Clavulanate Potassium (Augmentin 875mg) 1 tab PO BIDM [facility] Stop: 06/07/18 07:59 Last Admin: 06/01/18 08:22 Dose: 1 tab Documented by: Colchicine (Colcrys) 0.6 mg PO BID [facility] Stop: 06/28/18 08:59 Last Admin: 06/01/18 08:22 Dose: 0.6 mg Documented by: Dextrose (Dextrose 50%) 25 - 50 ml IV UD PRN; Protocol PRN Reason: Hypoglycemia Protocol Stop: 06/27/18 23:40 Doxycycline Hyclate (Vibramycin) 100 mg PO BID [facility] Stop: 06/05/18 08:59 Last Admin: 06/01/18 08:23 Dose: 100 mg Documented by: Glucagon (Glucagen) 1 mg SQ UD PRN; Protocol PRN Reason: Hypoglycemia Protocol Stop: 06/27/18 23:40 Glucose (Glucose 40%) 15 - 30 gm PO UD PRN; Protocol PRN Reason: Hypoglycemia Protocol Stop: 06/27/18 23:40 Glucose (Dex4 Glucose) 4 - 8 tabs PO UD PRN; Protocol PRN Reason: Hypoglycemia Protocol Stop: 06/27/18 23:40 Insulin Aspart (Novolog Flexpen) 0 units SC ACHS [facility] Stop: 06/28/18 07:29 Last Admin: 06/01/18 12:42 Dose: 5 units Documented by: Insulin Glargine (Lantus Solostar Pen) 0 - 15 units SC Q12 [facility]; Protocol Stop: 06/28/18 00:00 Last Admin: 06/01/18 08:49 Dose: 7 units Documented by: Levothyroxine Sodium (Synthroid) 125 mcg PO DAILYBB [facility] Stop: 06/30/18 06:29 Last Admin: 06/01/18 05:50 Dose: 125 mcg Documented by: Metoprolol Tartrate (Lopressor) 12.5 mg PO BID [facility] Stop: 06/30/18 20:59 Last Admin: 06/01/18 08:52 Dose: 12.5 mg Documented by: Metoprolol Tartrate (Lopressor) 5 mg IV Q6 PRN PRN Reason: for heart rate above 110 bpm Stop: 07/01/18 11:44 Miscellaneous (Carbohydrates For Hypoglycemia) 15 - 30 gm PO UD PRN PRN Reason: Hypoglycemia Treatment Stop: 06/27/18 23:40 Ondansetron HCl (Zofran) 4 mg IV Q6H PRN PRN Reason: Nausea And Vomiting Stop: 07/01/18 12:59 Last Admin: 06/01/18 12:58 Dose: 4 mg Documented by: Prednisone (Prednisone) 40 mg PO DAILY [facility] Stop: 06/30/18 17:44 Last Admin: 06/01/18 08:22 Dose: 40 mg Documented by:
[2018-06-02] MEDS: LEVOTHYROXINE SODIUM 125 MCG TABLET PO SCH (06:13)
[2018-06-02] MEDS: INSULIN ASPART 100 UNITS/ML 3 ML PEN SC SCH ×4 (08:30→20:49)
[2018-06-02] MEDS: METOPROLOL TARTRATE 25 MG TAB PO SCH (08:33)
[2018-06-02] MEDS: DOXYCYCLINE HYCLATE 100 MG CAP PO SCH ×2 (08:35→20:51)
[2018-06-02] MEDS: COLCHICINE 0.6 MG TAB PO SCH ×2 (08:35→20:50)
[2018-06-02] MEDS: predniSONE 20 MG TAB PO SCH (08:36)
[2018-06-02] MEDS: AMOXICILLIN/CLAVULANATE 875 MG TAB PO SCH ×2 (08:37→16:20)
[2018-06-02] MEDS: INSULIN GLARGINE SOLOSTAR 100 UNITS/ML 3 ML PEN SC SCH ×2 (08:38→20:50)
[2018-06-02 09:47] LABS: Hematocrit (blood only) 43.6 % (37-47); Hemoglobin 14.7 g/dL (12.0-16.0); Mean Corpuscular Hgb Conc 33.7 g/dL (32-36); Mean Platelet Volume 9.6 fL (7.4-10.4); Platelet Count 583 K/uL (130-400); RDW Coefficient of Variation 13.5 % (11.5-14.5); RDW Standard Deviation 44.1 fL (36.4-46.3); White Blood Count 16.83 K/uL (4.8-10.8)
[2018-06-02 09:48] LABS: Basophils # (auto) 0.02 K/uL (0-0.2); Basophils % (auto) 0.1 %; Eosinophils # (auto) 0.04 K/uL (0-0.5); Eosinophils % (auto) 0.2 %; Immature Granulocytes # (auto) 0.43 K/uL (0.00-0.02); Immature Granulocytes % (auto) 2.6 %; Lymphocytes # (auto) 2.86 K/uL (1.2-3.4); Monocytes # (auto) 0.81 K/uL (0.11-0.59); Monocytes % (auto) 4.8 %; Neutrophils # (auto) 12.67 K/uL (1.4-6.5); Neutrophils % (auto) 75.3 %
[2018-06-02 09:53] LABS: Albumin Level 2.3 gm/dl (3.4-5.0); Creatinine Clr Calc Pharmacy 48.9 ml/min; Est GFR (African American) 55.2; Est GFR (Non-African American) 47.7; Potassium 3.6 mmol/L (3.5-5.1)
[2018-06-02 10:22] LABS: Albumin Globulin Ratio 0.4 (0.9-2); Bilirubin,Total 0.6 mg/dl (0.2-1); Globulin 5.8 gm/dl (2.5-4.0); Total Protein 8.1 gm/dl (6.4-8.2)
[2018-06-02] MEDS ORDERED: POTASSIUM CHLORIDE 20 MEQ TABCR PO STA (12:06)
--- NOTE | 2018-06-02 12:06 | Cardiology Progress Note ---
Date of Service June 02, 2018 Assessment & Plan (1) Paroxysmal atrial fibrillation: No further recurrence of atrial fibrillation. Patient benefit from thoracentesis removal of irritant. We will switch metoprolol to Toprol-XL 12.5 mg twice per day. Avoid anticoagulation for now Supplement potassium (2) Pericardial effusion without cardiac tamponade: Moderate pericardial effusion secondary to pericarditis related to acute pneumonia/infectious process. Clinically improving with intravenous steroids. Would recommend a slow steroid trend over 4 weeks. Will add colchicine. Daily ECG. Echocardiogram today demonstrates trivial pericardial effusion substantially improved from last study. Left pleural effusion remains persistent (3) Pleural effusion: Patient clinically improved status post thoracentesis less pleuritic discomfort, better aeration and oxygenation (4) Elevated troponin I level: Secondary to underlying illness, hypoxia related to pneumonia, and atrial fibrillation with rapid ventricular response. ECG findings representing pericarditis. (5) Pneumonia: (6) Strep pharyngitis: Continue Rocephin. (7) Coronary artery calcification seen on CAT scan: Subjective Patient seen and examined, chart medications telemetry reviewed. Patient underwent thoracentesis yesterday with spontaneous conversion to sinus rhythm post procedure. Feels substantially improved less pleuritic pain, ambulatory in hallway. No further arrhythmias overnight Physical Exam Vital Signs (Past 24 Hours): Last Vital Signs Temp 36.6 C 06/02/18 10:58 Pulse 51 L 06/02/18 10:58 Resp 20 06/02/18 10:58 BP 144/80 H 06/02/18 10:58 Pulse Ox 91 06/02/18 10:58 Constitutional: WD/WN, vitals as above ENMT: external ear and nose normal, oropharynx normal Respiratory: normal respiratory effort, lungs clear to auscultation Auscultation: no pleural rub Cardiovascular: Rate/Rhythm: regular rate and regular rhythm Heart Sounds: normal S1 and normal S2; no cardiac rub Gastrointestinal (Abdomen): normal bowel sounds, soft, nontender, no hepatosplenomegaly Results & Data Laboratory Results Laboratory Results - last 24 hr 06/01/18 06/01/18 06/01/18 14:07 14:07 16:12 WBC RBC Hgb Hct MCV MCH MCHC RDW Std Deviation RDW Coeff of Marely Plt Count MPV Immature Gran % (Auto) Neut % (Auto) Lymph % (Auto) Cuming % (Auto) Eos % (Auto) Baso % (Auto) Immature Gran # (Auto) Neut # (Auto) Lymph # (Auto) Cuming # (Auto) Eos # (Auto) Baso # (Auto) Sodium 134 L Potassium 4.1 Chloride 98 Carbon Dioxide 26 Anion Gap 11.0 BUN 31 H Creatinine 1.06 Est Cr Clr Drug Dosing 54.0 Est GFR ( Amer) 60.3 Est GFR (Non-Af Amer) 52.0 BUN/Creatinine Ratio 29.0 H Glucose 154 H POC Glucose 190 H Calcium 8.8 Total Bilirubin 0.7 AST 187 H ALT 379 H Alkaline Phosphatase 175 H Lactate Dehydrogenase 387 H Total Protein 8.6 H Albumin 2.2 L Globulin 6.4 H Albumin/Globulin Ratio 0.3 L Pleural Fluid Source Pleural Color Pleural Appearance Pleural pH Pleural WBC Pleural RBC Pleural Polynuclear % Pleural Mononuclear % Pleural Total Protein Pleural LDH Pleural Glucose Pleural Amylase 06/01/18 06/01/18 06/01/18 20:41 Unknown Unknown WBC RBC Hgb Hct MCV MCH MCHC RDW Std Deviation RDW Coeff of Marely Plt Count MPV Immature Gran % (Auto) Neut % (Auto) Lymph % (Auto) Cuming % (Auto) Eos % (Auto) Baso % (Auto) Immature Gran # (Auto) Neut # (Auto) Lymph # (Auto) Cuming # (Auto) Eos # (Auto) Baso # (Auto) Sodium Potassium Chloride Carbon Dioxide Anion Gap BUN Creatinine Est Cr Clr Drug Dosing Est GFR ( Amer) Est GFR (Non-Af Amer) BUN/Creatinine Ratio Glucose POC Glucose 183 H Calcium Total Bilirubin AST ALT Alkaline Phosphatase Lactate Dehydrogenase Total Protein Albumin Globulin Albumin/Globulin Ratio Pleural Fluid Source LEFT LUNG Pleural Color YELLOW Pleural Appearance CLOUDY Pleural pH 7.41 H Pleural WBC 3474 Pleural RBC 4000 Pleural Polynuclear % 58.2 Pleural Mononuclear % 41.8 Pleural Total Protein Pleural LDH Pleural Glucose Pleural Amylase 06/01/18 06/02/18 06/02/18 Unknown 08:01 08:06 WBC RBC Hgb Hct MCV MCH MCHC RDW Std Deviation RDW Coeff of Marely Plt Count MPV Immature Gran % (Auto) Neut % (Auto) Lymph % (Auto) Cuming % (Auto) Eos % (Auto) Baso % (Auto) Immature Gran # (Auto) Neut # (Auto) Lymph # (Auto) Cuming # (Auto) Eos # (Auto) Baso # (Auto) Sodium Potassium Chloride Carbon Dioxide Anion Gap BUN Creatinine Est Cr Clr Drug Dosing Est GFR ( Amer) Est GFR (Non-Af Amer) BUN/Creatinine Ratio Glucose POC Glucose 63 L* 115 H Calcium Total Bilirubin AST ALT Alkaline Phosphatase Lactate Dehydrogenase Total Protein Albumin Globulin Albumin/Globulin Ratio Pleural Fluid Source Pleural Color Pleural Appearance Pleural pH Pleural WBC Pleural RBC Pleural Polynuclear % Pleural Mononuclear % Pleural Total Protein 4.4 Pleural LDH 364 Pleural Glucose 170 Pleural Amylase 14 06/02/18 06/02/18 06/02/18 09:00 09:00 11:07 WBC 16.83 H RBC 4.90 Hgb 14.7 Hct 43.6 MCV 89.0 MCH 30.0 MCHC 33.7 RDW Std Deviation 44.1 RDW Coeff of Marely 13.5 Plt Count 583 H MPV 9.6 Immature Gran % (Auto) 2.6 Neut % (Auto) 75.3 Lymph % (Auto) 17.0 Cuming % (Auto) 4.8 Eos % (Auto) 0.2 Baso % (Auto) 0.1 Immature Gran # (Auto) 0.43 H Neut # (Auto) 12.67 H Lymph # (Auto) 2.86 Cuming # (Auto) 0.81 H Eos # (Auto) 0.04 Baso # (Auto) 0.02 Sodium 140 Potassium 3.6 Chloride 102 Carbon Dioxide 31 Anion Gap 7.0 BUN 31 H Creatinine 1.14 Est Cr Clr Drug Dosing 48.9 Est GFR ( Amer) 55.2 Est GFR (Non-Af Amer) 47.7 BUN/Creatinine Ratio 27.0 H Glucose 144 H POC Glucose 114 H Calcium 9.0 Total Bilirubin 0.6 AST 78 H ALT 300 H Alkaline Phosphatase 150 H Lactate Dehydrogenase Total Protein 8.1 Albumin 2.3 L Globulin 5.8 H Albumin/Globulin Ratio 0.4 L Pleural Fluid Source Pleural Color Pleural Appearance Pleural pH Pleural WBC Pleural RBC Pleural Polynuclear % Pleural Mononuclear % Pleural Total Protein Pleural LDH Pleural Glucose Pleural Amylase (1) Pneumonia Laterality: unspecified laterality Lung location: unspecified part of lung Pneumonia type: due to unspecified organism Qualified Code(s): J18.9 - Pneumonia, unspecified organism
--- NOTE | 2018-06-02 17:32 | Hospitalist Progress Note ---
Date of Service June 02, 2018 Assessment & Plan (1) Pneumonia: Dyspnea Present on admission with worsening SOB, fever associated with pleuritic chest pain CXR showed left basilar infiltrate concerning for pneumonia. CTA chest showed Small right and [id number] left pleural effusions with left greater than right bibasilar consolidation suggestive of probable atelectasis. No evidence of PE Elevated WBC, Lactacte and procalcitonin on admission Flu influenza PCR negative patient has been on ceftriaxone and Doxycycline since 05/29/18, continue doxycycline BID and switch ceftriaxone to Augmentin BID starting 05/30/18 blood cultures as no growth on oral prednisone Pleural effusion: Secondary to pneumonia. on antibiotics and had trial of Lasix 06/01/18 thoracentesis of left pleural effusion and had 460 ml of pleural fluid removed and then patient was able to breathe with good oxygen saturation on room air and return to sinus rhythm review of pleural fluid meeting Light's criteria for exudative effusion as pleural protein to serum protein ratio is 0.54 and pleural LDH to serum LDH ratio is 0.94 continue antibiotics (2) Strep pharyngitis: Had negative rapid strep test on 05/24/18 with f/u PCR results on 05/27/18 +Group A strep. Was on PCN 05/27/18. Continue antibiotics (3) Atrial fibrillation with rapid ventricular response: Paroxysmal atrial fibrillation Presented in the ER with Atrial fibrillation with rapid ventricular response on 05/28/17 was on heparin drip which was stopped on 05/30/18 Heart rate controlled and in sinus bradycardia between 05/29/18 to 05/30/18 while on metoprolol and patient was transitioned off telemetry sena to medical sena 06/01/18: again with atrial fibrillation with RVR;then patient had thoracentesis of left pleural effusion and had 460 ml of pleural fluid removed and then patient was able to breathe with good oxygen saturation on room air and return to sinus rhythm 06/02/18: remains on room air and in sinus rhythm; switch metoprolol to Toprol-XL 12.5 mg twice per day (4) Elevated troponin: Elevated troponin on admission and has trended down Secondary to underlying illness, hypoxia related to pneumonia, and atrial fib rillation with rapid ventricular response. ECG findings representing pericarditis. Coronary artery calcification seen on CAT scan: On metoprolol, and statin Pericardial effusion without cardiac tamponade: CTA chest showed Moderate cardiomegaly with moderate sized pericardial effusion. Moderate pericardial effusion secondary to pericarditis related to acute pneumonia/infectious process. Clinically improved with intravenous steroids on oral prednisone with plans for slow steroid trend over 4 weeks colchicine BID (5) Hypokalemia: potassium currently at normal levels and stable (6) Hyperglycemia: Recent Hba1c 6.6 Counseling on lifestyles modification and follow a healthy diet On Lantus, Novolog sliding scale while in the hospital (7) High cholesterol: Cholesterol and LDL at goal Continue statin DVT Prophylaxis: SCD and ambulation Code status Full Code Subjective Patient converted to sinus rhythm yesterday on 06/01/18 after patient had thoracentesis and pleural fluid drained and then was able to breathe with good oxygen saturation on room air Patient continues to be in sinus rhythm today and on room air. Denies chest pain or acute shortness of breath. no abdominal pain or vomiting. Physical Exam Vital Signs (Past 24 Hours): Last Vital Signs Temp 36.7 C 06/02/18 15:09 Pulse 65 06/02/18 15:09 Resp 18 06/02/18 15:09 BP 121/71 06/02/18 15:09 Pulse Ox 92 06/02/18 15:09 Constitutional: WD/WN, vitals as above Eyes: PERRL, conjunctivae normal, anicteric sclerae EOM intact bilaterally ENMT: external ear and nose normal, oropharynx normal Neck: normal visual inspection and trachea midline Respiratory: normal respiratory effort, lungs clear to auscultation Cardiovascular: RRR, no murmur, no edema Gastrointestinal (Abdomen): normal bowel sounds, soft, nontender, no hepatosplenomegaly Musculoskeletal: no cyanosis or clubbing, extremities motor strength 5/5 Head/Neck/Chest: normocephalic and head atraumatic Neurologic: PERRL, EOMI, accommodation nl, no face palsy, no dysarthria CN's II-XI intact bilaterally Psychiatric: A+Ox3, euthymic affect (1) Pneumonia Laterality: unspecified laterality Lung location: unspecified part of lung Pneumonia type: due to unspecified organism Qualified Code(s): J18.9 - Pneumonia, unspecified organism
[2018-06-02] MEDS: METOPROLOL SUCC 25MG EXT REL TAB PO SCH (20:50)
[2018-06-02] MEDS ORDERED: METOPROLOL TARTRATE 1 MG/ML VIAL IV STA (21:14)
[2018-06-03] MEDS ORDERED: TRAZODONE HCL 50 MG TAB PO ONE (00:30)
[2018-06-03] MEDS: LEVOTHYROXINE SODIUM 125 MCG TABLET PO SCH (06:00)
--- NOTE | 2018-06-03 07:56 | Hospitalist Progress Note ---
Date of Service June 03, 2018 Assessment & Plan (1) Pneumonia: Dyspnea Present on admission with worsening SOB, fever associated with pleuritic chest pain CXR showed left basilar infiltrate concerning for pneumonia. CTA chest showed Small right and [id number] left pleural effusions with left greater than right bibasilar consolidation suggestive of probable atelectasis. No evidence of PE Elevated WBC, Lactacte and procalcitonin on admission Flu influenza PCR negative patient has been on ceftriaxone and Doxycycline since 05/29/18, continue doxycycline BID and switch ceftriaxone to Augmentin BID starting 05/30/18 blood cultures as no growth on oral prednisone the acute respiratory failure with hypoxia had resolved on 06/01/18 after thoracentesis of left pleural effusion and had 460 ml of pleural fluid removed Pleural effusion: Secondary to pneumonia. on antibiotics and had trial of Lasix 06/01/18 thoracentesis of left pleural effusion and had 460 ml of pleural fluid removed and then patient was able to breathe with good oxygen saturation on room air and return to sinus rhythm review of pleural fluid meeting Light's criteria for exudative effusion as pleural protein to serum protein ratio is 0.54 and pleural LDH to serum LDH ratio is 0.94; pleural fluid with no growth to date continue antibiotics (2) Strep pharyngitis: Had negative rapid strep test on 05/24/18 with f/u PCR results on 05/27/18 +Group A strep. Was on PCN 05/27/18. Continue antibiotics (3) Atrial fibrillation with rapid ventricular response: Paroxysmal atrial fibrillation Presented in the ER with Atrial fibrillation with rapid ventricular response on 05/28/17 was on heparin drip which was stopped on 05/30/18 Heart rate controlled and in sinus bradycardia between 05/29/18 to 05/30/18 while on metoprolol and patient was transitioned off telemetry sena to medical sena 06/01/18: again with atrial fibrillation with RVR;then patient had thoracentesis of left pleural effusion and had 460 ml of pleural fluid removed and then chavez cruzleslie was able to breathe with good oxygen saturation on room air and return to sinus rhythm 06/02/18: remains on room air and in sinus rhythm; switched metoprolol to Toprol- XL 12.5 mg twice per day as per cardiology service Patient was in normal sinus rhythm throughout out much of 06/02/18 but then returned to atrial fibrillation with RVR around 10:40 PM, patient received 1 additional dose of IV Lopressor 2.5 mg, and returned to sinus rhythm at 5:20 AM on 06/03/18. will discuss with cardiology service about possible anticoagulation versus anti- arrhythmic strategies given recurrent atrial fibrillation with RVR despite removal of pleural fluid from pleural effusion (4) Elevated troponin: Elevated troponin on admission and has trended down Secondary to underlying illness, hypoxia related to pneumonia, and atrial fibrillation with rapid ventricular response. ECG findings representing pericarditis. Coronary artery calcification seen on CAT scan: On metoprolol, and statin Pericardial effusion without cardiac tamponade: CTA chest showed Moderate cardiomegaly with moderate sized pericardial effusion. Moderate pericardial effusion secondary to pericarditis related to acute pneumonia/infectious process. Clinically improved with intravenous steroids on oral prednisone with plans for slow steroid trend over 4 weeks colchicine BID (5) Hypokalemia: potassium currently at normal levels and stable (6) Hyperglycemia: Recent Hba1c 6.6 Counseling on lifestyles modification and follow a healthy diet On Lantus, Novolog sliding scale while in the hospital (7) High cholesterol: Cholesterol and LDL at goal Continue statin DVT Prophylaxis: SCD and ambulation; will discuss with cardiology service about possible anticoagulation versus anti-arrhythmic strategies given recurrent atrial fibrillation with RVR despite removal of pleural fluid from pleural effusion Code status Full Code Subjective Reviewed telemetry events. Patient was in normal sinus rhythm throughout out much of 06/02/18 but then returned to atrial fibrillation with RVR around 10:40 PM, patient received 1 additional dose of IV Lopressor 2.5 mg, and returned to sinus rhythm at 5:20 AM on 06/03/18. Patient seen and examined at the bedside eating breakfast. no acute distress. denies chest pain or palpitations or shortness of breath. no abdominal pain. no vomiting. continues to be on room air Physical Exam Vital Signs (Past 24 Hours): Last Vital Signs Temp 36.6 C 06/03/18 03:34 Pulse 84 06/03/18 03:34 Resp 16 06/03/18 03:34 BP 110/70 06/03/18 03:34 Pulse Ox 93 06/03/18 03:34 Constitutional: WD/WN, vitals as above Eyes: PERRL, conjunctivae normal, anicteric sclerae EOM intact bilaterally ENMT: external ear and nose normal, oropharynx normal Neck: normal visual inspection and trachea midline Respiratory: normal respiratory effort, lungs clear to auscultation Cardiovascular: RRR, no murmur, no edema Gastrointestinal (Abdomen): normal bowel sounds, soft, nontender, no hepatosplenomegaly Musculoskeletal: no cyanosis or clubbing, extremities motor strength 5/5 Head/Neck/Chest: normocephalic and head atraumatic Neurologic: PERRL, EOMI, accommodation nl, no face palsy, no dysarthria CN's II-XI intact bilaterally Psychiatric: A+Ox3, euthymic affect (1) Pneumonia Laterality: unspecified laterality Lung location: unspecified part of lung Pneumonia type: due to unspecified organism Qualified Code(s): J18.9 - Pneumonia, unspecified organism
[2018-06-03] MEDS: AMOXICILLIN/CLAVULANATE 875 MG TAB PO SCH ×2 (08:46→17:36)
[2018-06-03] MEDS: COLCHICINE 0.6 MG TAB PO SCH ×2 (08:47→21:04)
[2018-06-03] MEDS: INSULIN GLARGINE SOLOSTAR 100 UNITS/ML 3 ML PEN SC SCH ×2 (08:48→21:04)
[2018-06-03] MEDS: predniSONE 20 MG TAB PO SCH (08:48)
[2018-06-03] MEDS: DOXYCYCLINE HYCLATE 100 MG CAP PO SCH ×2 (08:49→21:03)
[2018-06-03] MEDS: METOPROLOL SUCC 25MG EXT REL TAB PO SCH (08:49)
[2018-06-03] MEDS: INSULIN ASPART 100 UNITS/ML 3 ML PEN SC SCH ×4 (08:51→21:04)
[2018-06-03] MEDS ORDERED: METOPROLOL TARTRATE 1 MG/ML VIAL IV SCH (09:30)
[2018-06-03] MEDS ORDERED: Nursing to Pharmacy Communication ONE ×2 (09:30→10:44)
[2018-06-03 11:31] LABS: BUN Creatinine Ratio 28.2 (10-20); Calcium 8.6 mg/dl (8.5-10.1); Creatinine Clr Calc Pharmacy 57.5 ml/min; Est GFR (African American) 67.2; Est GFR (Non-African American) 57.9; Potassium 4.2 mmol/L (3.5-5.1)
[2018-06-03] MEDS: SOTALOL HCL 80 MG TAB PO SCH ×2 (11:32→21:03)
--- NOTE | 2018-06-03 14:15 | Cardiology Progress Note ---
Date of Service June 03, 2018 Assessment & Plan (1) Paroxysmal atrial fibrillation: Patient with once again breakthrough paroxysmal atrial fibrillation. Discussed management patient Will initiate antiarrhythmic therapy with sotalol 40 mg p.o. twice daily following EKGs. Remain on telemetry minimum 48 hours Also discussed indications for anticoagulation. Patient has chads vasc 2 score of 2 for gender and age. Discussed risk benefits ratio given recent pericarditis and current sinus rhythm risk of anticoagulation likely greater than benefit. If atrial fibrillation however comes more persistent would anticoagulate. Antiarrhythmic therapy initiated as above (2) Pericardial effusion without cardiac tamponade: Improved on last echocardiogram pleuritic pain and discomfort less prominent. Prednisone will be tapered continue colchicine (3) Pleural effusion: Patient clinically improved status post thoracentesis less pleuritic discomfort, better aeration and oxygenation (4) Elevated troponin I level: Secondary to underlying illness, hypoxia related to pneumonia, and atrial fibrillation with rapid ventricular response. ECG findings representing kenyatta carditis. (5) Pneumonia: Recently treated for strep pharyngitis. Cultures pending at this time. Continue antibiotics per internal medicine. (6) Strep pharyngitis: Continue Rocephin. (7) Coronary artery calcification seen on CAT scan: Subjective Patient seen and examined, chart medications telemetry reviewed. Patient feels well and improved less pleuritic discomfort however continues to have transient atrial fibrillation with rapid response and spontaneous conversion to sinus rhythm. Physical Exam Vital Signs (Past 24 Hours): Last Vital Signs Temp 36.4 C L 06/03/18 10:56 Pulse 61 06/03/18 10:56 Resp 19 06/03/18 10:56 BP 129/81 06/03/18 10:56 Pulse Ox 93 06/03/18 10:56 Constitutional: WD/WN, vitals as above ENMT: external ear and nose normal, oropharynx normal Respiratory: normal respiratory effort, lungs clear to auscultation Auscultation: no pleural rub Cardiovascular: Rate/Rhythm: regular rate and regular rhythm Heart Sounds: normal S1 and normal S2; no cardiac rub Gastrointestinal (Abdomen): normal bowel sounds, soft, nontender, no hep atosplenomegaly Results & Data Laboratory Results Laboratory Results - last 24 hr 06/02/18 06/02/18 06/03/18 16:07 20:22 07:26 Sodium Potassium Chloride Carbon Dioxide Anion Gap BUN Creatinine Est Cr Clr Drug Dosing Est GFR ( Amer) Est GFR (Non-Af Amer) BUN/Creatinine Ratio Glucose POC Glucose 220 H 138 H 103 H Calcium 06/03/18 06/03/18 10:48 11:20 Sodium 138 Potassium 4.2 D Chloride 104 Carbon Dioxide 26 Anion Gap 8.0 BUN 27 H Creatinine 0.97 Est Cr Clr Drug Dosing 57.5 Est GFR ( Amer) 67.2 Est GFR (Non-Af Amer) 57.9 BUN/Creatinine Ratio 28.2 H Glucose 113 H POC Glucose 96 Calcium 8.6 (1) Pneumonia Laterality: unspecified laterality Lung location: unspecified part of lung Pneumonia type: due to unspecified organism Qualified Code(s): J18.9 - Pneumonia, unspecified organism
[2018-06-03] MEDS: TRAZODONE HCL 50 MG TAB PO SCH (21:03)
[2018-06-04] MEDS: LEVOTHYROXINE SODIUM 125 MCG TABLET PO SCH (06:35)
[2018-06-04 06:54] LABS: Basophils # (auto) 0.01 K/uL (0-0.2); Basophils % (auto) 0.1 %; Eosinophils # (auto) 0.07 K/uL (0-0.5); Eosinophils % (auto) 0.5 %; Hemoglobin 13.4 g/dL (12.0-16.0); Immature Granulocytes # (auto) 0.22 K/uL (0.00-0.02); Immature Granulocytes % (auto) 1.6 %; Lymphocytes # (auto) 2.93 K/uL (1.2-3.4); Lymphocytes % (auto) 21.3 %; Mean Corpuscular Hgb Conc 33.5 g/dL (32-36); Mean Corpuscular Volume 88.5 fL (80-100); Mean Platelet Volume 9.4 fL (7.4-10.4); Monocytes # (auto) 0.73 K/uL (0.11-0.59); Monocytes % (auto) 5.3 %; Neutrophils # (auto) 9.77 K/uL (1.4-6.5); Neutrophils % (auto) 71.2 %; Platelet Count 530 K/uL (130-400); RDW Coefficient of Variation 13.6 % (11.5-14.5); RDW Standard Deviation 43.6 fL (36.4-46.3); Red Blood Count 4.52 M/uL (4.2-5.4); White Blood Count 13.73 K/uL (4.8-10.8)
[2018-06-04 07:05] LABS: INR 1.2 (0.9-1.1); Partial Thromboplastin Ratio 0.9; Partial Thromboplastin Time 24.7 Seconds (21.0-31.0); Prothrombin Time 12.4 Seconds (9.0-12.0)
[2018-06-04 07:18] LABS: Albumin Level 2.3 gm/dl (3.4-5.0); BUN Creatinine Ratio 25.8 (10-20); Calcium 8.3 mg/dl (8.5-10.1); Creatinine Clr Calc Pharmacy 55.9 ml/min; Est GFR (African American) 65.5; Est GFR (Non-African American) 56.5; Potassium 4.3 mmol/L (3.5-5.1)
[2018-06-04 07:21] LABS: Albumin Globulin Ratio 0.5 (0.9-2); Bilirubin,Total 0.6 mg/dl (0.2-1); Globulin 4.7 gm/dl (2.5-4.0)
[2018-06-04] MEDS: SOTALOL HCL 80 MG TAB PO SCH ×2 (08:44→20:30)
[2018-06-04] MEDS: COLCHICINE 0.6 MG TAB PO SCH ×2 (08:44→20:30)
[2018-06-04] MEDS: DOXYCYCLINE HYCLATE 100 MG CAP PO SCH ×2 (08:45→20:31)
[2018-06-04] MEDS: AMOXICILLIN/CLAVULANATE 875 MG TAB PO SCH ×2 (08:45→17:59)
[2018-06-04] MEDS: predniSONE 20 MG TAB PO SCH (08:45)
[2018-06-04] MEDS: INSULIN GLARGINE SOLOSTAR 100 UNITS/ML 3 ML PEN SC SCH ×2 (08:46→20:31)
[2018-06-04] MEDS: INSULIN ASPART 100 UNITS/ML 3 ML PEN SC SCH ×4 (08:47→20:31)
--- NOTE | 2018-06-04 11:20 | Cardiology Progress Note ---
Date of Service June 04, 2018 Assessment & Plan (1) Paroxysmal atrial fibrillation: Patient with once again breakthrough paroxysmal atrial fibrillation. Discussed management patient Will initiate antiarrhythmic therapy with sotalol 40 mg p.o. twice daily following EKGs. Remain on telemetry minimum 48 hours Also discussed indications for anticoagulation. Patient has chads vasc 2 score of 2 for gender and age. Discussed risk benefits ratio given recent pericarditis and current sinus rhythm risk of anticoagulation likely greater than benefit. If atrial fibrillation however comes more persistent would anticoagulate. Antiarrhythmic therapy initiated as above Tolerating sotalol well without further recurrence of atrial fibrillation. Repeat EKG ordered for a.m. (2) Pericardial effusion without cardiac tamponade: Improved on last echocardiogram pleuritic pain and discomfort less prominent. Prednisone will be tapered continue colchicine (3) Pleural effusion: Patient clinically improved status post thoracentesis less pleuritic discomfort, better aeration and oxygenation (4) Elevated troponin I level: Secondary to underlying illness, hypoxia related to pneumonia, and atrial fibrillation with rapid ventricular response. ECG findings representing pericarditis. (5) Pneumonia: Recently treated for strep pharyngitis. Cultures pending at this time. Continue antibiotics per internal medicine. (6) Strep pharyngitis: Continue Rocephin. (7) Coronary artery calcification seen on CAT scan: Subjective Patient seen and examined, chart medications telemetry reviewed. Patient feels well and improved less pleuritic discomfort . No further atrial fibrillation after beginning sotalol Physical Exam Vital Signs (Past 24 Hours): Last Vital Signs Temp 36.5 C 06/04/18 06:54 Pulse 53 L 06/04/18 06:54 Resp 18 06/04/18 06:54 BP 130/78 06/04/18 06:54 Pulse Ox 95 06/04/18 06:54 Constitutional: WD/WN, vitals as above ENMT: external ear and nose normal, oropharynx normal Respiratory: normal respiratory effort, lungs clear to auscultation Auscultation: no pleural rub Cardiovascular: Rate/Rhythm: regular rate and regular rhythm Heart Sounds: normal S1 and normal S2; no cardiac rub Gastrointestinal (Abdomen): normal bowel sounds, soft, nontender, no hepatosplenomegaly Results & Data Laboratory Results Laboratory Results - last 24 hr 06/03/18 06/03/18 06/03/18 10:48 11:20 16:28 WBC RBC Hgb Hct MCV MCH MCHC RDW Std Deviation RDW Coeff of Marely Plt Count MPV Immature Gran % (Auto) Neut % (Auto) Lymph % (Auto) Sanders % (Auto) Eos % (Auto) Baso % (Auto) Immature Gran # (Auto) Neut # (Auto) Lymph # (Auto) Sanders # (Auto) Eos # (Auto) Baso # (Auto) PT INR APTT PTT Ratio Sodium 138 Potassium 4.2 D Chloride 104 Carbon Dioxide 26 Anion Gap 8.0 BUN 27 H Creatinine 0.97 Est Cr Clr Drug Dosing 57.5 Est GFR ( Amer) 67.2 Est GFR (Non-Af Amer) 57.9 BUN/Creatinine Ratio 28.2 H Glucose 113 H POC Glucose 96 220 H Calcium 8.6 Total Bilirubin AST ALT Alkaline Phosphatase Total Protein Albumin Globulin Albumin/Globulin Ratio 06/03/18 06/04/18 06/04/18 20:28 06:15 06:15 WBC 13.73 H RBC 4.52 Hgb 13.4 Hct 40.0 MCV 88.5 MCH 29.6 MCHC 33.5 RDW Std Deviation 43.6 RDW Coeff of Marely 13.6 Plt Count 530 H MPV 9.4 Immature Gran % (Auto) 1.6 Neut % (Auto) 71.2 Lymph % (Auto) 21.3 Sanders % (Auto) 5.3 Eos % (Auto) 0.5 Baso % (Auto) 0.1 Immature Gran # (Auto) 0.22 H Neut # (Auto) 9.77 H Lymph # (Auto) 2.93 Sanders # (Auto) 0.73 H Eos # (Auto) 0.07 Baso # (Auto) 0.01 PT 12.4 H INR 1.2 H APTT 24.7 PTT Ratio 0.9 Sodium Potassium Chloride Carbon Dioxide Anion Gap BUN Creatinine Est Cr Clr Drug Dosing Est GFR ( Amer) Est GFR (Non-Af Amer) BUN/Creatinine Ratio Glucose POC Glucose 142 H Calcium Total Bilirubin AST ALT Alkaline Phosphatase Total Protein Albumin Globulin Albumin/Globulin Ratio 06/04/18 06/04/18 06:15 07:26 WBC RBC Hgb Hct MCV MCH MCHC RDW Std Deviation RDW Coeff of Marely Plt Count MPV Immature Gran % (Auto) Neut % (Auto) Lymph % (Auto) Sanders % (Auto) Eos % (Auto) Baso % (Auto) Immature Gran # (Auto) Neut # (Auto) Lymph # (Auto) Sanders # (Auto) Eos # (Auto) Baso # (Auto) PT INR APTT PTT Ratio Sodium 138 Potassium 4.3 Chloride 103 Carbon Dioxide 30 Anion Gap 5.0 BUN 26 H Creatinine 0.99 Est Cr Clr Drug Dosing 55.9 Est GFR ( Amer) 65.5 Est GFR (Non-Af Amer) 56.5 BUN/Creatinine Ratio 25.8 H Glucose 86 POC Glucose 82 Calcium 8.3 L Total Bilirubin 0.6 AST 51 H ALT 230 H Alkaline Phosphatase 107 Total Protein 7.0 Albumin 2.3 L Globulin 4.7 H Albumin/Globulin Ratio 0.5 L (1) Pneumonia Laterality: unspecified laterality Lung location: unspecified part of lung Pneumonia type: due to unspecified organism Qualified Code(s): J18.9 - Pneumonia, unspecified organism
--- NOTE | 2018-06-04 13:05 | Hospitalist Progress Note ---
Date of Service June 04, 2018 Assessment & Plan (1) Pneumonia: Dyspnea Present on admission with worsening SOB, fever associated with pleuritic chest pain CXR showed left basilar infiltrate concerning for Pneumonia. CTA chest showed Small right and [id number] left pleural effusions with left greater than right bibasilar consolidation suggestive of probable atelectasis. No evidence of PE Elevated WBC, Lactacte and procalcitonin on admission Flu influenza PCR negative the acute respiratory failure with hypoxia had resolved on 06/01/18 after thoracentesis of left pleural effusion and had 460 ml of pleural fluid removed blood cultures as no growth, pleural fluid with no growth patient has been on ceftriaxone and Doxycycline since 05/29/18, continue doxycycline BID and switch ceftriaxone to Augmentin BID starting 05/30/18 on oral prednisone and being tapered Pleural effusion: Secondary to pneumonia. on antibiotics and had trial of Lasix 06/01/18 thoracentesis of left pleural effusion and had 460 ml of pleural fluid removed and then patient was able to breathe with good oxygen saturation on room air and return to sinus rhythm review of pleural fluid meeting Light's criteria for exudative effusion as pleural protein to serum protein ratio is 0.54 and pleural LDH to serum LDH ratio is 0.94; pleural fluid with no growth to date continue antibiotics (2) Strep pharyngitis: Had negative rapid strep test on 05/24/18 with f/u PCR results on 05/27/18 +Group A strep. Was on PCN 05/27/18. Continue antibiotics (3) Atrial fibrillation with rapid ventricular response: Paroxysmal atrial fibrillation Presented in the ER with Atrial fibrillation with rapid ventricular response on 05/28/17 was on heparin drip which was stopped on 05/30/18 Heart rate controlled and in sinus bradycardia between 05/29/18 to 05/30/18 while on metoprolol and patient was transitioned off telemetry sena to medical sena 06/01/18: again with atrial fibrillation with RVR;then patient had thoracentesis of left pleural effusion and had 460 ml of pleural fluid removed and then patient was able to breathe with good oxygen saturation on room air and return to sinus rhythm 06/02/18: remains on room air and in sinus rhythm; switched metoprolol to Toprol- XL 12.5 mg twice per day as per cardiology service Patient was in normal sinus rhythm throughout out much of 06/02/18 but then returned to atrial fibrillation with RVR around 10:40 PM, patient received 1 additional dose of IV Lopressor 2.5 mg, and returned to sinus rhythm at 5:20 AM on 06/03/18. patient is on antiarrhythmic therapy with sotalol 40 mg p.o. twice daily starting on 06/03/18 and remains on sotalol and telemetry monitoring as per cardiology service (4) Elevated troponin: Elevated troponin on admission and has trended down Secondary to underlying illness, hypoxia related to pneumonia, and atrial fibrillation with rapid ventricular response. ECG findings representing pericarditis. Coronary artery calcification seen on CAT scan: On metoprolol, and statin Pericardial effusion without cardiac tamponade: CTA chest showed Moderate cardiomegaly with moderate sized pericardial effusion. Moderate pericardial effusion secondary to pericarditis related to acute pneumonia/infectious process. Clinically improved with intravenous steroids on oral prednisone taper colchicine BID (5) Hypokalemia: potassium currently at normal levels and stable (6) Hyperglycemia: Recent Hba1c 6.6 reflects a diagnosis of Type 2 Diabetes Mellitus patient was not on diabetes medications previously On Lantus, Novolog sliding scale while in the hospital and blood glucose controlled Counseling on lifestyles modification and follow a healthy diet will need outpatient follow up with primary care doctor Transaminitis patient also noted to have transaminitis on this hospital stay but no abdominal pain or abdominal symptoms, continue to monitor (7) High cholesterol: Cholesterol and LDL at goal Continue statin DVT Prophylaxis: SCD and ambulation Code status Full Code Subjective Reviewed telemetry events. Patient in normal sinus rhythm no acute distress. denies chest pain or palpitations or shortness of breath. no abdominal pain. no vomiting. continues to be on room air. continue telemetry monitoring as per cardiology service while on sotalol Physical Exam Vital Signs (Past 24 Hours): Last Vital Signs Temp 36.4 C L 06/04/18 11:31 Pulse 57 L 06/04/18 11:31 Resp 21 06/04/18 11:31 BP 106/69 06/04/18 11:31 Pulse Ox 94 06/04/18 11:31 Constitutional: WD/WN, vitals as above Eyes: PERRL, conjunctivae normal, anicteric sclerae EOM intact bilaterally ENMT: external ear and nose normal, oropharynx normal Neck: normal visual inspection and trachea midline Respiratory: normal respiratory effort, lungs clear to auscultation Cardiovascular: RRR, no murmur, no edema Rate/Rhythm: regular rhythm and + bradycardic Gastrointestinal (Abdomen): normal bowel sounds, soft, nontender, no hepatosplenomegaly Musculoskeletal: no cyanosis or clubbing, extremities motor strength 5/5 Head/Neck/Chest: normocephalic and head atraumatic Neurologic: PERRL, EOMI, accommodation nl, no face palsy, no dysarthria CN's II-XI intact bilaterally Psychiatric: A+Ox3, euthymic affect (1) Pneumonia Laterality: unspecified laterality Lung location: unspecified part of lung Pneumonia type: due to unspecified organism Qualified Code(s): J18.9 - Pneumonia, unspecified organism
[2018-06-04] MEDS: TRAZODONE HCL 50 MG TAB PO SCH (20:30)
[2018-06-05] MEDS: LEVOTHYROXINE SODIUM 125 MCG TABLET PO SCH (06:07)
[2018-06-05 07:56] LABS: Albumin Level 2.3 gm/dl (3.4-5.0); BUN Creatinine Ratio 24.2 (10-20); Calcium 8.3 mg/dl (8.5-10.1); Creatinine Clr Calc Pharmacy 50.6 ml/min; Est GFR (African American) 57.7; Est GFR (Non-African American) 49.8
[2018-06-05 07:59] LABS: Albumin Globulin Ratio 0.5 (0.9-2); Bilirubin,Total 0.8 mg/dl (0.2-1); Globulin 4.3 gm/dl (2.5-4.0); Total Protein 6.6 gm/dl (6.4-8.2)
[2018-06-05] MEDS: COLCHICINE 0.6 MG TAB PO SCH (09:06)
[2018-06-05] MEDS: SOTALOL HCL 80 MG TAB PO SCH (09:06)
[2018-06-05] MEDS: predniSONE 20 MG TAB PO SCH (09:06)
[2018-06-05] MEDS: AMOXICILLIN/CLAVULANATE 875 MG TAB PO SCH (09:07)
[2018-06-05] MEDS: INSULIN GLARGINE SOLOSTAR 100 UNITS/ML 3 ML PEN SC SCH (09:07)
[2018-06-05] MEDS: INSULIN ASPART 100 UNITS/ML 3 ML PEN SC SCH ×2 (09:09→12:53)
--- NOTE | 2018-06-05 11:50 | Cardiology Progress Note ---
Date of Service June 05, 2018 Assessment & Plan (1) Paroxysmal atrial fibrillation: Patient with once again breakthrough paroxysmal atrial fibrillation. Discussed management patient On antiarrhythmic therapy with sotalol 40 mg p.o. twice daily following EKGs. Also discussed indications for anticoagulation. Patient has chads vasc 2 score of 2 for gender and age. Discussed risk benefits ratio given recent pericarditis and current sinus rhythm risk of anticoagulation likely greater th an benefit. If atrial fibrillation however comes more persistent would anticoagulate. Antiarrhythmic therapy initiated as above Tolerating sotalol well without further recurrence of atrial fibrillation. Patient to be discharged on 40 mg sotalol p.o. twice daily (2) Pericardial effusion without cardiac tamponade: Improved on last echocardiogram pleuritic pain and discomfort less prominent. Would reduce prednisone to 10 mg/day x 7 days then discontinue, continue colchicine (3) Pleural effusion: Patient clinically improved status post thoracentesis less pleuritic discomfort, better aeration and oxygenation (4) Elevated troponin I level: Secondary to underlying illness, hypoxia related to pneumonia, and atrial fibrillation with rapid ventricular response. ECG findings representing pericarditis. Will consider stress testing post hospital discharge follow-up with cardiology 2 weeks time (5) Pneumonia: Recently treated for strep pharyngitis. Cultures pending at this time. Continue antibiotics per internal medicine. (6) Strep pharyngitis: Continue Rocephin. (7) Coronary artery calcification seen on CAT scan: Subjective Patient seen and examined, chart medications telemetry reviewed. Patient feels wellt . No further atrial fibrillation after beginning sotalol Physical Exam Vital Signs (Past 24 Hours): Last Vital Signs Temp 36.7 C 06/05/18 10:49 Pulse 51 L 06/05/18 10:49 Resp 18 06/05/18 10:49 BP 107/68 06/05/18 10:49 Pulse Ox 95 06/05/18 10:49 Constitutional: WD/WN, vitals as above ENMT: external ear and nose normal, oropharynx normal Respiratory: normal respiratory effort, lungs clear to auscultation Auscultation: no pleural rub Cardiovascular: Rate/Rhythm: regular rate and regular rhythm Heart Sounds: normal S1 and normal S2; no cardiac rub Gastrointestinal (Abdomen): normal bowel sounds, soft, nontender, no hepatosplenomegaly Results & Data Laboratory Results Laboratory Results - last 24 hr 06/04/18 06/04/18 06/05/18 15:59 19:52 06:46 Sodium 136 Potassium 4.0 Chloride 101 Carbon Dioxide 29 Anion Gap 6.0 BUN 27 H Creatinine 1.10 Est Cr Clr Drug Dosing 50.6 Est GFR ( Amer) 57.7 Est GFR (Non-Af Amer) 49.8 BUN/Creatinine Ratio 24.2 H Glucose 75 POC Glucose 106 H 149 H Calcium 8.3 L Total Bilirubin 0.8 AST 29 ALT 179 H Alkaline Phosphatase 102 Total Protein 6.6 Albumin 2.3 L Globulin 4.3 H Albumin/Globulin Ratio 0.5 L 06/05/18 06/05/18 07:18 11:11 Sodium Potassium Chloride Carbon Dioxide Anion Gap BUN Creatinine Est Cr Clr Drug Dosing Est GFR ( Amer) Est GFR (Non-Af Amer) BUN/Creatinine Ratio Glucose POC Glucose 87 80 Calcium Total Bilirubin AST ALT Alkaline Phosphatase Total Protein Albumin Globulin Albumin/Globulin Ratio ECG Additional Comments: 05-JUN-2018 06:19:25 [facility] Sinus bradycardia T wave abnormality, consider lateral ischemia Abnormal ECG When compared with ECG of 04-JUN-2018 06:12, T wave inversion no longer evident in Inferior leads Inverted T waves have replaced nonspecific T wave abnormality in Lateral leads QTC 408 (1) Pneumonia Laterality: unspecified laterality Lung location: unspecified part of lung Pneumonia type: due to unspecified organism Qualified Code(s): J18.9 - Pneumonia, unspecified organism
--- NOTE | 2018-06-05 14:01 | Hospitalist Progress Note ---
Date of Service June 05, 2018 Assessment & Plan (1) Pneumonia: Dyspnea Present on admission with worsening SOB, fever associated with pleuritic chest pain CXR showed left basilar infiltrate concerning for Pneumonia. CTA chest showed Small right and [id number]-gr-[id number] left pleural effusions with left greater than right bibasilar consolidation suggestive of probable atelectasis. No evidence of PE Elevated WBC, Lactacte and procalcitonin on admission Flu influenza PCR negative the acute respiratory failure with hypoxia had resolved on 06/01/18 after thoracentesis of left pleural effusion and had 460 ml of pleural fluid removed blood cultures as no growth, pleural fluid with no growth patient has been on ceftriaxone and Doxycycline since 05/29/18, continue doxycycline BID and switch ceftriaxone to Augmentin BID starting 05/30/18 on oral prednisonetaper 3 more days of antibiotics as Augmentin BID and prescription was written, doxycline stopped after 06/05/18; repeat Chest X ray with primary care doctor recommended Pleural effusion: Secondary to pneumonia. on antibiotics and had trial of Lasix 06/01/18 thoracentesis of left pleural effusion and had 460 ml of pleural fluid removed and then patient was able to breathe with good oxygen saturation on room air and return to sinus rhythm review of pleural fluid meeting Light's criteria for exudative effusion as pleural protein to serum protein ratio is 0.54 and pleural LDH to serum LDH ratio is 0.94; pleural fluid with no growth to date continue antibiotics (2) Strep pharyngitis: Had negative rapid strep test on 05/24/18 with f/u PCR results on 05/27/18 +Group A strep. Was on PCN 05/27/18. Continue antibiotics 3 more days of antibiotics as Augmentin BID and prescription was written, doxycline stopped after 06/05/18 (3) Atrial fibrillation with rapid ventricular response: Paroxysmal atrial fibrillation Presented in the ER with Atrial fibrillation with rapid ventricular response on 05/28/17 was on heparin drip which was stopped on 05/30/18 Heart rate controlled and in sinus bradycardia between 05/29/18 to 05/30/18 while on metoprolol and patient was transitioned off telemetry sena to medical sena 06/01/18: again with atrial fibrillation with RVR;then patient had thoracentesis of left pleural effusion and had 460 ml of pleural fluid removed and then patient was able to breathe with good oxygen saturation on room air and return to sinus rhythm 06/02/18: remains on room air and in sinus rhythm; switched metoprolol to Toprol- XL 12.5 mg twice per day as per cardiology service Patient was in normal sinus rhythm throughout out much of 06/02/18 but then r eturned to atrial fibrillation with RVR around 10:40 PM, patient received 1 additional dose of IV Lopressor 2.5 mg, and returned to sinus rhythm at 5:20 AM on 06/03/18. patient is on antiarrhythmic therapy with sotalol 40 mg p.o. twice daily starting on 06/03/18 and remains on sotalol; discharge with current dose as per cardiology service (4) Elevated troponin: Elevated troponin on admission and has trended down Secondary to underlying illness, hypoxia related to pneumonia, and atrial fibrillation with rapid ventricular response. ECG findings representing pericarditis. Coronary artery calcification seen on CAT scan: On metoprolol Pericardial effusion without cardiac tamponade: CTA chest showed Moderate cardiomegaly with moderate sized pericardial effusion. Moderate pericardial effusion secondary to pericarditis related to acute pneumonia/infectious process. Clinically improved with intravenous steroids on oral prednisone taper prednisone 10 mg daily for 7 more days colchicine 0.6 mg twice a day 06/15/2018 11:00 AM Provider Steve Wong PA-C Department Cardiology, [facility] (5) Hypokalemia: potassium currently at normal levels and stable (6) Hyperglycemia: Recent Hba1c 6.6 reflects a diagnosis of Type 2 Diabetes Mellitus patient was not on diabetes medications previously On Lantus, Novolog sliding scale while in the hospital and blood glucose controlled Counseling on lifestyles modification and follow a healthy diet will need outpatient follow up with primary care doctor (patient should Discuss with family medical doctor that with HbA1c of 6.5 and therefor meets criteria for Type 2 diabetes mellitus whether diabetes medication should be started versus dietary and lifestyle changes without medications) Transaminitis patient also noted to have transaminitis on this hospital stay but no abdominal pain or abdominal symptoms, continue to monitor hold off aspirin and atorvastatin until re-evaluation by primary care doctor and for repeat liver function lab tests (7) High cholesterol: Cholesterol and LDL at goal Continue statin DVT Prophylaxis: SCD and ambulation Code status Full Code Discharge Diagnosis Paroxysmal atrial fibrillation, Pericardial effusion, elevated troponin (resolved), Pneumonia, Strep Pharyngitis, Type 2 diabetes mellitus with complication 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 use of insulin, Transaminitis Discharge Instructions 06/12/2018 3:10 PM Provider Steve Padron MD Department [facility] 06/15/2018 11:00 AM Provider Steve Wong PA-C Department Cardiology, [facility] prednisone 10 mg daily for 7 days colchicine 0.6 mg twice a day hold off aspirin and atorvastatin until re-evaluation by primary care doctor and for repeat liver function lab tests 3 more days of antibiotics as Augmentin BID repeat Chest X ray with primary care doctor recommended Discuss with family medical doctor that with HbA1c of 6.5 and therefor meets criteria for Type 2 diabetes mellitus whether diabetes medication should be sta rted versus dietary and lifestyle changes without medications Subjective Reviewed telemetry events. Patient in normal sinus rhythm no acute distress. denies chest pain or palpitations or shortness of breath. no abdominal pain. no vomiting. continues to be on room air. continue telemetry monitoring as per cardiology service while on sotalol Physical Exam Vital Signs (Past 24 Hours): Last Vital Signs Temp 36.7 C 06/05/18 10:49 Pulse 51 L 06/05/18 10:49 Resp 18 06/05/18 10:49 BP 107/68 06/05/18 10:49 Pulse Ox 95 06/05/18 10:49 Constitutional: WD/WN, vitals as above Eyes: PERRL, conjunctivae normal, anicteric sclerae EOM intact bilaterally ENMT: external ear and nose normal, oropharynx normal Neck: normal visual inspection and trachea midline Respiratory: normal respiratory effort, lungs clear to auscultation Cardiovascular: RRR, no murmur, no edema Rate/Rhythm: regular rhythm and + bradycardic Gastrointestinal (Abdomen): normal bowel sounds, soft, nontender, no hepatosplenomegaly Musculoskeletal: no cyanosis or clubbing, extremities motor strength 5/5 Head/Neck/Chest: normocephalic and head atraumatic Neurologic: PERRL, EOMI, accommodation nl, no face palsy, no dysarthria CN's II-XI intact bilaterally Psychiatric: A+Ox3, euthymic affect (1) Pneumonia Laterality: unspecified laterality Lung location: unspecified part of lung Pneumonia type: due to unspecified organism Qualified Code(s): J18.9 - Pneumonia, unspecified organism
--- NOTE | 2018-06-05 14:09 | Discharge Summary ---
Date of Service June 05, 2018 Admission HPI Per Admitting Provider Pt is 72 y/o F with PMH depression, HLD, prediabetes, Grave's disease s/p ablation now on replacement therapy, h/o melanoma presented to ER with c/o SOB. Pt states 5 days ago started with fever/chills, myaligas, arthralgias and sore throat Reports throat very sore and had limited oral intake past several days. Was alternating Tylenol and Ibuprofen with limited pain relief. Reports didn't take her Rx medications for past 4 days. States is now able to swallow better and is swallowing her secretions without difficulty. Reports has been worn out and sitting around most of the day for past several days. Was seen at PCP office on 05/24/18 and had documented T: 102.9F. Initial diagnosis probable influenza and had negative rapid strep test. 05/27/18 PCR +Group A strep and pt was started on PCN. Pt states over past several days developed SOB, orthopnea, pleuritic CP. C/O aching across upper back. Denies productive cough or hemoptysis. [place] some lightheadeness with standing. States had red rash to anterior neck on symptom onset which has since resolved. Denies other rashes. Pt denies hx known a-fib. Reports over past several years has had intermittent "fluttering in chest" that occurs with activity and lasts several seconds and resolves. Never thought to mention the palpiation symptoms to anyone in the past. Denies N/V/D/C, syncope, vision changes, neck pain, otalgia, rhinorrhea, abdominal pain, paresthesias, extremity edema, urinary symptoms, melena, hematochezia, epistaxis. Denies hx DVT/PE or known clotting disorder. Denies hx CHF. Admission Exam Per Admitting Provider General: mild distress with pleuritic CP, WDWN Head: normocephalic, atraumatic Eyes: PERRL, EOM's intact, conjunctiva non-injected, anicteric ENT: normal inspection external ears, nose, mucous membranes dry, pharynx +erythema and petechiae, uvula midline and non-edematous Neck: supple, trachea midline, +anterior cervical lymphadenopathy Lungs: R: 20, 94% on 2L oxygen NC, difficult to fully auscultate secondary to shallow breaths, however no significant wheezing/rales noted CV: Irregularly irregular, rate 90-106, no murmur, no pretibial edema Abd: normal BS, soft, non-tender Ext: no cyanosis, no calf tenderness, no erythema or edema Neuro: A&O x 3, no focal deficits noted, normal affect Skin: warm, dry, no rashes noted Principal Diagnosis Paroxysmal atrial fibrillation, Pericardial effusion, elevated troponin (resolved), Pneumonia, Strep Pharyngitis, Type 2 diabetes mellitus with complication without ad 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 operator use of insulin, Transaminitis Discharge Exam Constitutional WD/WN, vitals as above Eyes PERRL, conjunctivae normal, anicteric sclerae EOM intact bilaterally ENMT external ear and nose normal, oropharynx normal Neck normal visual inspection and trachea midline Respiratory normal respiratory effort, lungs clear to auscultation Cardiovascular RRR, no murmur, no edema Rate/Rhythm: regular rhythm and + bradycardic Gastrointestinal (Abdomen) normal bowel sounds, soft, nontender, no hepatosplenomegaly Musculoskeletal no cyanosis or clubbing, extremities motor strength 5/5 Head/Neck/Chest: normocephalic and head atraumatic Neurologic PERRL, EOMI, accommodation nl, no face palsy, no dysarthria CN's II-XI intact bilaterally Psychiatric A+Ox3, euthymic affect Discharge Data Allergies Allergy/AdvReac Type Severity Reaction Status Date / Time No Known Allergies Allergy Verified 05/28/18 20:47 Consultations 05/28/18 21:05 ED Decision to Admit Stat 05/29/18 07:00 Consult Cardiology Routine 06/01/18 12:27 Consult Pulmonology Routine Ordered Studies 05/28/18 22:03 CT angio chest PE protocol Urgent Hospital Course (1) Pneumonia: Dyspnea Present on admission with worsening SOB, fever associated with pleuritic chest pain CXR showed left basilar infiltrate concerning for Pneumonia. CTA chest showed Small right and [id number]-qh-[id number] left pleural effusions with left greater than right bibasilar consolidation suggestive of probable atelectasis. No evidence of PE Elevated WBC, Lactacte and procalcitonin on admission Flu influenza PCR negative the acute respiratory failure with hypoxia had resolved on 06/01/18 after thoracentesis of left pleural effusion and had 460 ml of pleural fluid removed blood cultures as no growth, pleural fluid with no growth patient has been on ceftriaxone and Doxycycline since 05/29/18, continue doxycycline BID and switch ceftriaxone to Augmentin BID starting 05/30/18 on oral prednisonetaper 3 more days of antibiotics as Augmentin BID and prescription was written, doxycline stopped after 06/05/18; repeat Chest X ray with primary care doctor recommended Pleural effusion: Secondary to pneumonia. on antibiotics and had trial of Lasix 06/01/18 thoracentesis of left pleural effusion and had 460 ml of pleural fluid removed and then patient was able to breathe with good oxygen saturation on room air and return to sinus rhythm review of pleural fluid meeting Light's criteria for exudative effusion as pleural protein to serum protein ratio is 0.54 and pleural LDH to serum LDH ratio is 0.94; pleural fluid with no growth to date continue antibiotics (2) Strep pharyngitis: Had negative rapid strep test on 05/24/18 with f/u PCR results on 05/27/18 +Group A strep. Was on PCN 05/27/18. Continue antibiotics 3 more days of antibiotics as Augmentin BID and prescription was written, doxycline stopped after 06/05/18 (3) Atrial fibrillation with rapid ventricular response: Paroxysmal atrial fibrillation Presented in the ER with Atrial fibrillation with rapid ventricular response on 05/28/17 was on heparin drip which was stopped on 05/30/18 Heart rate controlled and in sinus bradycardia between 05/29/18 to 05/30/18 while on metoprolol and patient was transitioned off telemetry sena to medical sena 06/01/18: again with atrial fibrillation with RVR;then patient had thoracentesis of left pleural effusion and had 460 ml of pleural fluid removed and then patient was able to breathe with good oxygen saturation on room air and return to sinus rhythm 06/02/18: remains on room air and in sinus rhythm; switched metoprolol to Toprol- XL 12.5 mg twice per day as per cardiology service Patient was in normal sinus rhythm throughout out much of 06/02/18 but then ret urned to atrial fibrillation with RVR around 10:40 PM, patient received 1 additional dose of IV Lopressor 2.5 mg, and returned to sinus rhythm at 5:20 AM on 06/03/18. patient is on antiarrhythmic therapy with sotalol 40 mg p.o. twice daily starting on 06/03/18 and remains on sotalol; discharge with current dose as per cardiology service (4) Elevated troponin: Elevated troponin on admission and has trended down Secondary to underlying illness, hypoxia related to pneumonia, and atrial fibrillation with rapid ventricular response. ECG findings representing pericarditis. Coronary artery calcification seen on CAT scan: On metoprolol Pericardial effusion without cardiac tamponade: CTA chest showed Moderate cardiomegaly with moderate sized pericardial effusion. Moderate pericardial effusion secondary to pericarditis related to acute pneumonia/infectious process. Clinically improved with intravenous steroids on oral prednisone taper prednisone 10 mg daily for 7 more days colchicine 0.6 mg twice a day 06/15/2018 11:00 AM Provider Steve Wong PA-C Department Cardiology, [facility] (5) Hypokalemia: potassium currently at normal levels and stable (6) Hyperglycemia: Recent Hba1c 6.6 reflects a diagnosis of Type 2 Diabetes Mellitus patient was not on diabetes medications previously On Lantus, Novolog sliding scale while in the hospital and blood glucose controlled Counseling on lifestyles modification and follow a healthy diet will need outpatient follow up with primary care doctor (patient should Discuss with family medical doctor that with HbA1c of 6.5 and therefor meets criteria for Type 2 diabetes mellitus whether diabetes medication should be started versus dietary and lifestyle changes without medications) Transaminitis patient also noted to have transaminitis on this hospital stay but no abdominal pain or abdominal symptoms, continue to monitor hold off aspirin and atorvastatin until re-evaluation by primary care doctor and for repeat liver function lab tests (7) High cholesterol: Cholesterol and LDL at goal Continue statin DVT Prophylaxis: SCD and ambulation Code status Full Code Discharge Diagnosis Paroxysmal atrial fibrillation, Pericardial effusion, elevated troponin (resolved), Pneumonia, Strep Pharyngitis, Type 2 diabetes mellitus with complication without longterm use of insulin, Transaminitis Discharge Instructions 06/12/2018 3:10 PM Provider Steve Padron MD Department [facility] 06/15/2018 11:00 AM Provider Steve Wong PA-C Department Cardiology, [facility] prednisone 10 mg daily for 7 days colchicine 0.6 mg twice a day hold off aspirin and atorvastatin until re-evaluation by primary care doctor and for repeat liver function lab tests 3 more days of antibiotics as Augmentin BID repeat Chest X ray with primary care doctor recommended Discuss with family medical doctor that with HbA1c of 6.5 and therefor meets criteria for Type 2 diabetes mellitus whether diabetes medication should be started versus dietary and lifestyle changes without medications Total Time Total Time Spent Total Time Spent (In Minutes): 40 minutes Total Time Includes: Examination of the Patient, Discharge Planning and Medication Reconciliation Discharge Plan Discharge Items Patient Disposition: Home - Self-Care Reason For Visit: A FIB, PNEUMONIA Discharge Diagnosis: Paroxysmal atrial fibrillation, Pericardial effusion, elevated troponin (resolved), Pneumonia, Strep Pharyngitis, Type 2 diabetes mellitus with complication without ad 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 operator use of insulin, Transaminitis Condition: Good Discharge Goals: Improve disease control Activity: Resume your previous activity Non-emergency contact: Primary Care Provider and 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 Call non-emergency contact if: you have any medication questions Follow-up/Referrals: Steve Padron [Primary Care Provider] - Diet: Carb Consistent or DM2 Addtl Provider Instructions: 06/12/2018 3:10 PM Provider Steve Padron MD Department [facility] 06/15/2018 11:00 AM Provider Steve Wong PA-C Department Cardiology, [facility] prednisone 10 mg daily for 7 days colchicine 0.6 mg twice a day hold off aspirin and atorvastatin until re-evaluation by primary care doctor and for repeat liver function lab tests 3 more days of antibiotics as Augmentin BID repeat Chest X ray with primary care doctor recommended Discuss with family medical doctor that with HbA1c of 6.5 and therefor meets criteria for Type 2 diabetes mellitus whether diabetes medication should be started versus dietary and lifestyle changes without medications Prescriptions: New sotalol 80 mg Tablet 40 mg PO BID 30 Days Qty: 30 RF: 0 prednisone 10 mg tablet 10 mg PO DAILY 7 Days Qty: 7 RF: 0 colchicine [Colcrys] 0.6 mg Tablet 0.6 mg PO BID 30 Days Qty: 60 RF: 0 amoxicillin-pot clavulanate 875-125 mg Tablet 1 tab PO BIDM 3 Days Qty: 6 RF: 0 Continued trazodone 50 mg Tablet 1 tab PO HS RF: 0 citalopram [Celexa] 20 mg Tablet 20 mg PO DAILY RF: 0 levothyroxine [Synthroid] 125 mcg Tablet 125 mcg PO DAILY RF: 0 cholecalciferol (vitamin D3) [Vitamin D3] 1,000 unit Capsule 1,000 unit PO DAILY RF: 0 Calcium 600 + D(3) 600 mg calcium- 200 unit Capsule 1 cap PO DAILY RF: 0 corjw-[id number]-[id number]-bnr-[id number]-ast [krill oil] 1,200-468-93-80 mg Capsule 1 cap PO DAILY RF: 0 Discontinued atorvastatin 20 mg Tablet 20 mg PO PM RF: 0 penicillin V potassium 500 mg Tablet 500 mg PO TID RF: 0 aspirin [Aspir-81] 81 mg Tablet,Delayed Release (Dr/Ec) 1 tab PO DAILY RF: 0 Stand-Alone Forms: [facility] Discharge Orders: Discharge Order (Routine); Ordered 06/05/18 Ordered By: Randolph Redding Admission Data Admit Date/Time: 05/28/18 22:10 Attending Provider: Randolph Redding Admit Provider: Malvin Waller Primary Care Provider: Steve Padron Other Providers: Malvin Waller ; Beny Donnelly ; Gabriele Torres ; Oren Seay ; Ze Chung ; Urban Thomas ; Bj Eastman ; Guerline Clancy ; Anitha Poe ; Juliet Sutherland ; Louise Mehta ; Bozena Arce ; Mariano Johnson ; Justen García Service: Telemetry
== END 2018-06-05 14:00 | disposition home or self-care (01) | DRG 194 ==
LOC: ED 19:22 → 2S 22:10 → SUATTDRO 22:10 → 2S 22:40 → 4W 05-30 16:54 → 2S 06-01 10:59